=== PATIENT | male | born 1945 | race Caucasian/White ===

== ENCOUNTER 2017-11-07 01:14 | Inpatient (IN) | payer MEDICARE, BC ==
[2017-11-07] MEDS ORDERED: NALOXONE 0.4 MG/ML 1 ML VIAL IV PRN (01:53)
[2017-11-07 01:55] LABS: Basophils % (A) 0 %; Eosinophils # (A) 0.1 k/uL (0-0.7); Eosinophils % (A) 1 %; HCT 45.1 % (39.0-53.0); HGB 13.8 gm/dL (13.0-17.5); Hypochromasia Moderate; Lymphocytes # (A) 1.3 k/uL (1.0-4.8); Lymphocytes % (A) 19 %; MCH 26.2 pg (25.0-35.0); MCHC 30.6 g/dL (31.0-37.0); MCV 85.6 fL (80.0-100.0); Mean Platelet Volume 8.6; Monocytes # (A) 0.3 k/uL (0-1.0); Monocytes % (A) 4 %; Neutrophils # (A) 4.9 k/uL (1.3-7.7); Neutrophils % (A) 74 %; Platelet Count 223 k/uL (150-450); RBC 5.27 m/uL (4.30-5.90); RDW 14.1 % (11.5-15.5); WBC 6.6 k/uL (3.8-10.6)
[2017-11-07 02:09] LABS: Albumin 3.8 g/dL (3.5-5.0); Calcium 9.7 mg/dL (8.4-10.2); Potassium 3.1 mmol/L (3.5-5.1); Total Bilirubin 1.1 mg/dL (0.2-1.3); Total Protein 7.3 g/dL (6.3-8.2)
--- NOTE | 2017-11-07 02:11 | ED ---
Weakness HPI - General Chief complaint: Recheck/Abnormal Lab/Rx Stated complaint: Altered Mental Status Time Seen by Provider: 11/07/17 01:16 Source: family (), EMS Mode of arrival: EMS Limitations: altered mental status - History of Present Illness Initial comments: This patient is a 72-year-old man arriving here is a transfer from [facility]. History is from the patient's who states that she had taken him there because for the past few days she has been seeming to be declining. Patient has history of closed head injury and his is his primary caregiver. She states that over the past week or so he has had very little in the way of oral intake. She states that when she feeds him he will do things a little and then tends to hold food in his cheek without swallowing. He has also been taking very little in way of liquids. The patient also seems to be getting progressively weaker and seems to be sleeping more. Patient 's states that up until about 8 months ago she was able to get him to go up and down the stairs at their home. He has since that time been ambulating less. He has been doing much much less over about the past 2-3 days MD Complaint: generalized weakness, lack of energy -: days(s) Location: generalized - Related Data Allergies Allergy/AdvReac Type Severity Reaction Status Date / Time No Known Allergies Allergy Verified 11/07/17 01:27 Review of Systems ROS Statement: Those systems with pertinent positive or pertinent negative responses have been documented in the HPI. ROS Other: All systems not noted in ROS Statement are negative. Limitations: ROS unobtainable due to patients medical condition Past Medical History Additional Past Medical History / Comment(s): closed head injury, contracture left wrist hand, History of Any Multi-Drug Resistant Organisms: None Reported Past Surgical History: Appendectomy Additional Past Surgical History / Comment(s): antonio filter Past Psychological History: No Psychological Hx Reported Smoking Status: Never smoker Past Alcohol Use History: None Reported Past Drug Use History: None Reported General Exam Limitations: physical limitation General appearance: alert Eye exam: Present: normal appearance, PERRL. Absent: scleral icterus, conjunctival injection ENT exam: Present: mucous membranes dry Respiratory exam: Present: rhonchi. Absent: respiratory distress, wheezes, rales, stridor, accessory muscle use, decreased breath sounds, prolonged expiratory Cardiovascular Exam: Present: regular rate, normal rhythm, normal heart sounds. Absent: systolic murmur, diastolic murmur, rubs, gallop GI/Abdominal exam: Present: soft. Absent: tenderness, guarding, rebound Extremities exam: Present: normal capillary refill. Absent: tenderness, calf tenderness Neurological exam: Present: alert, other (Patient is alert but not able to cooperate with the neurologic exam. Patient does grasp objects with right hand. But not following commands. Currently nonverbal.) Skin exam: Present: warm, dry, intact, erythema (There is some mild erythema to the left lower extremity, the patient's states is chronic.) Course Vital Signs 11/07/17 11/07/17 11/07/17 01:20 02:26 03:00 Temperature 97.6 F 97.6 F Pulse Rate 81 76 41 L Respiratory 20 20 20 Rate Blood Pressure 101/75 143/65 144/75 O2 Sat by Pulse 95 98 98 Oximetry Medical Decision Making - Medical Decision Making Patient 72-year-old man brought to [facility] for generalized weakness and mental status changes. They're he is found to have significant dehydration and hypernatremia. Family requested that he be admitted here so he is transferred here. Patient be admitted for hydration. Discussed CODE STATUS with the patient's who states that he would not want to be resuscitated should the situation come to that. In addition appearanceofpatient' sleftlegwilltreatforsuspectedcellulitis. - Lab Data Result diagrams: 11/07/17 01:31 11/07/17 01:31 Lab Results 11/07/17 11/07/17 11/07/17 Range/Units 01:31 01:31 01:31 WBC 6.6 (3.8-10.6) k/uL RBC 5.27 (4.30-5.90) m/uL Hgb 13.8 (13.0-17.5) gm/dL Hct 45.1 (39.0-53.0) % MCV 85.6 (80.0-100.0) fL MCH 26.2 (25.0-35.0) pg MCHC 30.6 L (31.0-37.0) g/dL RDW 14.1 (11.5-15.5) % Plt Count 223 (150-450) k/uL Neutrophils % 74 % Lymphocytes % 19 % Monocytes % 4 % Eosinophils % 1 % Basophils % 0 % Neutrophils # 4.9 (1.3-7.7) k/uL Lymphocytes # 1.3 (1.0-4.8) k/uL Monocytes # 0.3 (0-1.0) k/uL Eosinophils # 0.1 (0-0.7) k/uL Basophils # 0.0 (0-0.2) k/uL Hypochromasia Moderate Sodium 177 H* (137-145) mmol/L Potassium 3.1 L (3.5-5.1) mmol/L Chloride 131 H* (98-107) mmol/L Carbon Dioxide 27 (22-30) mmol/L Anion Gap 19 mmol/L BUN 112 H* (9-20) mg/dL Creatinine 2.40 H (0.66-1.25) mg/dL Est GFR (CKD-EPI)AfAm 30 (>60 ml/min/1.73 sqM) Est GFR (CKD-EPI)NonAf 26 (>60 ml/min/1.73 sqM) Glucose 178 H (74-99) mg/dL Calcium 9.7 (8.4-10.2) mg/dL Total Bilirubin 1.1 (0.2-1.3) mg/dL AST 47 (17-59) U/L ALT 79 H (21-72) U/L Alkaline Phosphatase 253 H (38-126) U/L Troponin I <0.012 (0.000-0.034) ng/mL Total Protein 7.3 (6.3-8.2) g/dL Albumin 3.8 (3.5-5.0) g/dL Disposition Clinical Impression: Acute renal failure, Hypernatremia, Hypokalemia, Cellulitis Disposition: ADMITTED IP TO THIS HOSP Condition: Poor
[2017-11-07] MEDS ORDERED: DEXTROSE 5%-0.45% NACL 1,000 ML IV ONE (02:23)
[2017-11-07] MEDS: SODIUM CHLORIDE 0.9% 1,000 ML IV SCH ×3 (02:31→16:30)
--- NOTE | 2017-11-07 02:34 | XR ---
EXAMINATION TYPE: XR chest 1V portable DATE OF EXAM: 11/07/2017 COMPARISON: NONE HISTORY: Altered mental status TECHNIQUE: Single frontal view of the chest is obtained. FINDINGS: There is probably some infiltrate in the medial right lower lobe. There is no heart failur e. There are old left-sided rib fractures. Thoracic aorta is atheromatous. There are chest leads. IMPRESSION: There is probably right lower lobe pneumonia. Limited exam. No heart failure.
[2017-11-07] MEDS: POTASSIUM CHLORIDE 10 MEQ in WATER FOR INJECTION 1 100ML.BAG IVPB SCH ×2 (02:39→17:39)
[2017-11-07] MEDS: NAFCILLIN 2 GM in DEXTROSE 5% IN WATER 50 ML IVPB SCH ×6 (06:28→18:08)
[2017-11-07 11:16] LABS: Albumin 3.3 g/dL (3.5-5.0); Calcium 9.3 mg/dL (8.4-10.2); Total Bilirubin 1.1 mg/dL (0.2-1.3); Total Protein 6.8 g/dL (6.3-8.2)
[2017-11-07 11:27] LABS: Potassium 2.9 mmol/L (3.5-5.1)
[2017-11-07 11:40] LABS: HCT 41.7 % (39.0-53.0); HGB 12.7 gm/dL (13.0-17.5); Hypochromasia Marked; MCH 26.9 pg (25.0-35.0); MCHC 30.5 g/dL (31.0-37.0); MCV 88.1 fL (80.0-100.0); Mean Platelet Volume 8.8; Platelet Count 191 k/uL (150-450); RBC 4.74 m/uL (4.30-5.90); RDW 13.9 % (11.5-15.5); WBC 6.3 k/uL (3.8-10.6)
[2017-11-07] MEDS ORDERED: DEXTROSE 5% IN WATER 1,000 ML IV SCH (11:45)
[2017-11-07] MEDS: HEPARIN SODIUM,PORCINE 5,000 UNIT/ML 1 ML VIAL SQ SCH ×2 (13:34→18:08)
--- NOTE | 2017-11-07 14:02 | XR ---
EXAMINATION TYPE: XR Hip Complete RT DATE OF EXAM: 11/07/2017 CLINICAL HISTORY: Right hip pain and bruising TECHNIQUE: AP and frogleg views of the right hip are obtained. COMPARISON: None. FINDINGS: There is no acute fracture/dislocation evident in the right hip. There is mild femoral millicent tabular arthropathy with cephalad joint space narrowing and small marginal osteophytes. No suspicious osseous lesion. The overlying soft tissue appears unremarkable. IMPRESSION: There is no acute fracture or dislocation in the right hip. Mild right femoral acetabula r arthropathy.
--- NOTE | 2017-11-07 14:03 | XR ---
EXAMINATION TYPE: XR humerus RT DATE OF EXAM: 11/07/2017 CLINICAL HISTORY: Right humeral pain TECHNIQUE: Two views of the right humerus are obtained. COMPARISON: None. FINDINGS: There is no acute fracture or dislocation seen in the right humerus. The right shoulder a nd elbow joints demonstrate joint space narrowing and marginal osteophytes indicative of mild arthrop athy. The overlying soft tissue appears within normal limits. IMPRESSION: No acute fracture or dislocation is evident in the right humerus.
[2017-11-07] MEDS: DEXTROSE 5% IN WATER 1,000 ML with POTASSIUM CHLORIDE 40 MEQ IV SCH ×2 (15:00→20:10)
--- NOTE | 2017-11-07 15:50 | P.NPCON ---
History of Present Illness - Reason for Consult Consult date: 11/07/17 hypernatremia - Chief Complaint Altered mental status - History of Present Illness 72-year-old gentleman brought in as a transfer from [facility]. He was brought into the hospital with the decline in function. He had closed and injury and he stopped eating and drinking at home. He just holds food in his mouth and also was drinking very little. When he was brought to the hospital serum sodium was 178. He also had acute kidney injury as well. Of the history is obtained from the chart patient cannot give any history. He also takes diuretics at home. Review of Systems Unable to obtain at this time Past Medical History Past Medical History: Deep Vein Thrombosis (DVT) Additional Past Medical History / Comment(s): closed head injury, contracture left wrist hand, and Left leg, edema lower legs History of Any Multi-Drug Resistant Organisms: None Reported Past Surgical History: Appendectomy Additional Past Surgical History / Comment(s): antonio filter, left leg tendon surgery Past Anesthesia/Blood Transfusion Reactions: No Reported Reaction Past Psychological History: Depression Smoking Status: Never smoker Past Alcohol Use History: None Reported Past Drug Use History: None Reported - Past Family History Father History Unknown: Yes Additional Family Medical History / Comment(s): adopted only child no history available Medications and Allergies Home Medications Medication Instructions Recorded Confirmed Type Multivitamins, Thera [Multivitamin 1 tab PO DAILY 11/07/17 11/07/17 History (formulary)] Triamterene/Hydrochlorothiazid 1 tab PO DAILY 11/07/17 11/07/17 History [Triamterene-Hctz 37.5-25 mg Tb] Allergies Allergy/AdvReac Type Severity Reaction Status Date / Time No Known Allergies Allergy Verified 11/07/17 12:33 Physical Exam Vitals: Vital Signs Temp Pulse Pulse Resp BP BP Pulse Ox 11/07/17 06:05 96.5 F L 80 18 133/64 94 L 11/07/17 03:00 97.6 F 41 L 20 144/75 98 11/07/17 02:26 76 20 143/65 98 11/07/17 01:20 97.6 F 81 20 101/75 95 Intake and Output 11/07/17 11/07/17 11/07/17 06:59 14:59 22:59 Intake Total 800 Balance 800 Intake: Intake, IV Titration 800 Amount Dextrose 5%-0.45% NaCl 1, 800 000 ml @ 200 mls/hr IV . Q5H ONE Rx#:[id number] Other: # Voids 1 1 Weight 80 kg Lying in bed no acute distress S1-S2 heard Trace edema Results - Lab Results Most recent lab results Calcium 9.3 mg/dL (8.4-10.2) 11/07/17 07:25 11/07/17 07:25 11/07/17 07:25 Assessment and Plan Assessment: Impression: #1 hypERnatremia secondary to poor oral intake. #2 acute kidney injury secondary to prerenal process. #3 closed head injury #4 hypertension #5 hypokalemia Recommendations: #1 continue with D5 water increase the rate to 150 ML's an hour #2 the potassium replacements #3 urine osmolality to rule out underlying diabetes insipidus Thank you very much for this consultation we'll follow along while he is in the hospital.
[2017-11-07] MEDS: PIPERACILLIN-TAZOBACTAM 3.375 GM in DEXTROSE/WATER 1 50ML.BAG IVPB SCH (20:10)
--- NOTE | 2017-11-07 22:10 | HP ---
HISTORY AND PHYSICAL DATE OF SERVICE: 11/07/2017 CHIEF COMPLAINTS: Change in mental status. HISTORY OF PRESENT ILLNESS: This 72-year-old gentleman with a past medical history of multiple medical problems, history of DVT, history of closed head injury with contracture of the left wrist and with minimal mobility, was noted to have a change in mental status. The patient apparently had multiple bruises on the body including the both lower legs and the right hip. The patient apparently had the is a primary caregiver and according to the the p.o. intake was extremely poor last week and the patient taken to [facility] and subsequently transferred to [facility] and admitted for further evaluation and treatment. The patient is confused and delirious and severely dehydrated. The sodium is found to be 177 yesterday and creatinine is 2.4. The patient admitted for further evaluation and treatment. Most of the history taken from my discussion with staff and as well as review of chart at this time. The patient is followed by Dr. Louise in the outpatient setting. PAST MEDICAL HISTORY: History of DVT, history of closed head injury, contractures, depression. MEDICATIONS: Prior to admission include home medications are: 1. Multivitamins 1 p.o. daily. 2. Triamterene hydrochlorothiazide 37/25 daily. ALLERGIES: None. Family history, social history and review of systems could not be taken because the patient's change in mental status. The patient is adopted apparently. PHYSICAL EXAM: VITAL SIGNS: The pulse is 80, blood pressure is 130/62, respiration 18, temperature 97.5, pulse ox 94% on room air. GENERAL: Patient is stuporous and disoriented, confused. HEENT: Oral mucosa is dry. NECK: Is no jugular venous distention. No carotid bruit. No lymph node enlargement. CARDIOVASCULAR: S1, S2 muffled. No S3, no S4. RESPIRATORY: Breath sounds diminished in the bases. A few scattered rhonchi. No crackles. ABDOMEN: Soft, nontender. No mass palpable. LEGS: Contractures and significant erythema and cellulitis and excoriation present in the right thigh and also bilateral lower legs also. NERVOUS SYSTEM: Higher functions as mentioned earlier. Otherwise contractures. Unable to cooperate with full exam. SKIN as mentioned. LYMPHATICS: No lymph nodes palpable in the neck, axillae or groin. JOINT: Contractures.ln: Lymphadenopathy. LAB STUDIES: WBC 6.2, hemoglobin 12.7, sodium 178, potassium 2.9, chloride is 131, creatinine is 2.2, glucose 185, alkaline phosphatase is 219. ASSESSMENT: 1. Severe dehydration with hypernatremia secondary to diminished p.o. intake. 2. Change in mental status acute metabolic encephalopathy secondary to dehydration, hypernatremia. 3. Acute renal failure possible prerenal renal failure with acute tubular necrosis. 4. Hyperchloremia. 5. Closed head injury with contractures. 6. Bilateral leg cellulitis and right thigh cellulitis with possible sepsis. 7. History of deep vein thrombosis. 8. History of appendectomy. 9. History of [place] filter placement. 10.History of depression. RECOMMENDATIONS AND DISCUSSION: In this 72-year-old gentleman who presented with multiple complex medical issues , we will monitor the patient closely. Continue the current medications, management and symptomatic treatment. Otherwise we will initiate broad-spectrum IV antibiotics and DVT prophylaxis. IV fluids. D5 water with potassium at 150 mL/hour. Potassium replacement protocol. Repeat labs. Infectious disease evaluation. The prognosis extremely guarded because of the multiple complex medical issues. I would also recommend cultures also. Home medication reconciliation was also done, but however, I would recommend to hold the diuretics at this time and continue to monitor. The liver functions appear to be normal. Alkaline phosphatase is elevated. See orders for further details. Further recommendations to follow. MMODL / IJN: [id number] / MTDD
[2017-11-08] MEDS: PIPERACILLIN-TAZOBACTAM 3.375 GM in DEXTROSE/WATER 1 50ML.BAG IVPB SCH ×3 (00:51→16:08)
[2017-11-08] MEDS: HEPARIN SODIUM,PORCINE 5,000 UNIT/ML 1 ML VIAL SQ SCH ×3 (00:53→16:08)
[2017-11-08] MEDS: POTASSIUM CHLORIDE 10 MEQ in WATER FOR INJECTION 1 100ML.BAG IVPB SCH ×2 (03:23→14:11)
[2017-11-08 04:20] LABS: Amorphous Sediment,Urine Rare /hpf; Appearance,Urine Turbid (Clear); Bilirubin,Urine Negative (Negative); Blood,Urine Large (Negative); Color,Urine Light Red; Glucose,Urine (UA) Negative (Negative); Ketones,Urine Negative (Negative); Leukocyte Esterase,Urine Moderate (Negative); Mucus,Urine Few /hpf; Nitrite,Urine Negative (Negative); PH, Urine 5.5 (5.0-8.0); Protein,Urine 2+ (Negative); RBC,Urine >182 /hpf (0-5); Specific Gravity,Urine 1.018 (1.001-1.035); Urobilinogen,Urine <2.0 mg/dL (<2.0); WBC,Urine 46 /hpf (0-5)
[2017-11-08] MEDS: DEXTROSE 5% IN WATER 1,000 ML with POTASSIUM CHLORIDE 40 MEQ IV SCH ×3 (05:39→16:09)
[2017-11-08 08:12] LABS: Basophils % (A) 0 %; Eosinophils # (A) 0.2 k/uL (0-0.7); Eosinophils % (A) 2 %; HCT 42.3 % (39.0-53.0); Hypochromasia Marked; Lymphocytes # (A) 1.6 k/uL (1.0-4.8); Lymphocytes % (A) 18 %; MCH 27.3 pg (25.0-35.0); MCHC 30.8 g/dL (31.0-37.0); MCV 88.8 fL (80.0-100.0); Mean Platelet Volume 8.3; Monocytes # (A) 0.3 k/uL (0-1.0); Monocytes % (A) 4 %; Neutrophils # (A) 6.5 k/uL (1.3-7.7); Neutrophils % (A) 74 %; Platelet Count 184 k/uL (150-450); RBC 4.76 m/uL (4.30-5.90); RDW 14.5 % (11.5-15.5); WBC 8.7 k/uL (3.8-10.6)
[2017-11-08 08:29] LABS: Magnesium 3.2 mg/dL (1.6-2.3); Potassium 3.1 mmol/L (3.5-5.1)
[2017-11-08] MEDS: MULTIVITAMINS, THERA 1 EACH TAB PO SCH (11:23)
--- NOTE | 2017-11-08 13:46 | P.PN ---
Subjective Progress Note Date: 11/08/17 Seen and examined for the follow-up of hypernatremia and acute kidney injury. Still confused. Objective - Vital Signs Vital signs: Vital Signs Temp 97.1 F L 11/08/17 06:09 Pulse 62 11/08/17 06:09 Resp 16 11/08/17 06:09 BP 97/43 11/08/17 06:09 Pulse Ox 93 L 11/08/17 06:09 Intake & Output 11/07/17 11/08/17 11/08/17 18:59 06:59 18:59 Intake Total 800 Output Total 1000 Balance 800 -1000 Intake: Intake, IV Titration 800 Amount Dextrose 5%-0.45% NaCl 1, 800 000 ml @ 200 mls/hr IV . Q5H ONE Rx#:[id number] Output: Urine 1000 Other: Voiding Method Indwelling Catheter # Voids 1 - Exam Lying in bed no acute distress S1-S2 heard Edema - Labs CBC & Chem 7: 11/08/17 07:36 11/08/17 07:36 Labs: Abnormal Lab Results - Last 24 Hours (Table) 11/08/17 11/08/17 11/08/17 Range/Units 03:55 07:36 07:36 MCHC 30.8 L (31.0-37.0) g/dL Sodium 178 H* (137-145) mmol/L Potassium 3.1 L (3.5-5.1) mmol/L Chloride 131 H* (98-107) mmol/L BUN 91 H* (9-20) mg/dL Creatinine 2.17 H (0.66-1.25) mg/dL Glucose 158 H (74-99) mg/dL Magnesium 3.2 H (1.6-2.3) mg/dL Urine Protein 2+ H (Negative) Urine Blood Large H (Negative) Ur Leukocyte Esterase Moderate H (Negative) Urine RBC >182 H (0-5) /hpf Urine WBC 46 H (0-5) /hpf Amorphous Sediment Rare H (None) /hpf Urine Mucus Few H (None) /hpf Microbiology - Last 24 Hours (Table) 11/08/17 03:55 Urine Culture - Preliminary Urine,Catheterized Assessment and Plan Assessment: Impression: #1 hypERnatremia secondary to poor oral intake. #2 acute kidney injury secondary to prerenal process. Unknown baseline creatinine #3 closed head injury #4 hypertension #5 hypokalemia Recommendations: #1 continue with D5 water @ 150 ML's an hour. Discussed with the nursing staff regarding NG tube but she was pretty sure that he will pull it out. #2 continue with fluids at current rate. Anticipate to start improving by tomorrow. #3 urine osmolality not consistent with diabetes insipidus #4 continue with potassium replacements
--- NOTE | 2017-11-08 19:41 | PN ---
PROGRESS NOTE DATE OF SERVICE: 11/08/2017 This 72-year-old gentleman who was admitted with change in mental status and significant dehydration. Patient had significant hypernatremia. Despite giving D5 water the sodium is not improving. The patient also had change in mental status. Patient also had multiple skin lesions and possible sepsis also. The patient has been closely monitored. The patient is stuporous, unable to give any history at this time. Nephrology following the patient closely. The p.o. intake is nil currently. PAST MEDICAL HISTORY: Reviewed. REVIEW OF SYSTEMS: Could not be taken. CURRENT MEDICATIONS ARE: Reviewed and include: 1. Dextrose water. 2. Heparin. 3. Narcan. 4. Zosyn 3.5 IV q.8h. PHYSICAL EXAM: Patient is stuporous. Pulse is 62, blood pressure 97/42, respirations 16, temperature 97.1, pulse ox 93% on room air. HEENT: Conjunctivae normal. Oral mucosa dry. NECK: No jugular venous distention. No lymph node enlargement. CARDIOVASCULAR: S1, S2. RESPIRATORY: Diminished breath sounds at the bases. A few scattered rhonchi and crackles. ABDOMEN: Soft, nontender. LEGS: Contractures. SKIN: Erythema as well as infection present. NERVOUS SYSTEM: Unchanged. LAB: CBC within normal. Sodium 178, potassium 3.1, chloride is 131, creatinine is 2.17. UA noted, hematuria. Urine osmolality 684 and specific gravity is 1018. ASSESSMENT: 1. Severe dehydration with hyponatremia, possibly secondary to diminished p.o. intake. 2. Change in mental status, acute metabolic encephalopathy secondary dehydration. 3. Acute hypernatremia. 4. Acute renal failure, possibly prerenal acute renal failure with acute tubular necrosis. 5. Hyperchloremia. 6. Possible sepsis with cellulitis. 7. Closed-head injury with contractures. 8. History of deep vein thrombosis. 9. History of appendectomy. 10.History of [place] filter placement. 11.History of depression. 12.Possible sepsis with bilateral leg cellulitis and right thigh cellulitis. 13.No code, no CPR, no vent. RECOMMENDATIONS: Recommend to continue current management, continue symptomatic treatment, continue IV fluids, monitor glucose closely. Continue the empiric antibiotics. NG tube was considered by Nephrology, but because of lack of compliance, we will continue to monitor. I will get infectious disease evaluation as well. Prognosis guarded. Discussed with Nephrology. Further recommendations to follow. MMODL / IJN: [id number] /
[2017-11-09] MEDS: HEPARIN SODIUM,PORCINE 5,000 UNIT/ML 1 ML VIAL SQ SCH ×4 (00:17→23:23)
[2017-11-09] MEDS: PIPERACILLIN-TAZOBACTAM 3.375 GM in DEXTROSE/WATER 1 50ML.BAG IVPB SCH ×3 (00:17→16:01)
[2017-11-09] MEDS: DEXTROSE 5% IN WATER 1,000 ML with POTASSIUM CHLORIDE 40 MEQ IV SCH ×4 (00:18→22:47)
[2017-11-09] MEDS: POTASSIUM CHLORIDE 10 MEQ in WATER FOR INJECTION 1 100ML.BAG IVPB SCH ×2 (03:26→16:00)
[2017-11-09 08:09] LABS: Basophils % (A) 0 %; Eosinophils # (A) 0.3 k/uL (0-0.7); Eosinophils % (A) 3 %; HCT 43.3 % (39.0-53.0); Hypochromasia Marked; Lymphocytes # (A) 1.6 k/uL (1.0-4.8); Lymphocytes % (A) 20 %; MCH 26.3 pg (25.0-35.0); MCHC 30.1 g/dL (31.0-37.0); MCV 87.5 fL (80.0-100.0); Mean Platelet Volume 8.4; Monocytes # (A) 0.3 k/uL (0-1.0); Monocytes % (A) 4 %; Neutrophils # (A) 5.7 k/uL (1.3-7.7); Neutrophils % (A) 72 %; Platelet Count 199 k/uL (150-450); RBC 4.95 m/uL (4.30-5.90); RDW 14.2 % (11.5-15.5)
[2017-11-09 08:25] LABS: Calcium 8.9 mg/dL (8.4-10.2); Potassium 3.4 mmol/L (3.5-5.1)
[2017-11-09] MEDS: MULTIVITAMINS, THERA 1 EACH TAB PO SCH (12:36)
--- NOTE | 2017-11-09 13:31 | P.PN ---
Subjective Progress Note Date: 11/09/17 Seen and examined for the follow-up of hypernatremia and acute kidney injury. Still confused. As per the nursing nursing staff obeying commands Objective - Vital Signs Vital signs: Vital Signs Temp 97.6 F 11/09/17 06:46 Pulse 76 11/09/17 06:46 Resp 14 11/09/17 06:46 BP 136/77 11/09/17 06:46 Pulse Ox 94 L 11/09/17 06:46 Intake & Output 11/08/17 11/09/17 11/09/17 18:59 06:59 18:59 Output Total 525 800 350 Balance -525 -800 -350 Output: Urine 525 800 350 Other: Voiding Method Indwelling Catheter Indwelling Catheter Indwelling Catheter # Bowel Movements 0 - Exam Lying in bed no acute distress S1-S2 heard Edema - Labs CBC & Chem 7: 11/09/17 07:15 11/09/17 07:15 Labs: Abnormal Lab Results - Last 24 Hours (Table) 11/09/17 11/09/17 Range/Units 07:15 07:15 MCHC 30.1 L (31.0-37.0) g/dL Sodium 175 H* (137-145) mmol/L Potassium 3.4 L (3.5-5.1) mmol/L Chloride 132 H* (98-107) mmol/L BUN 69 H (9-20) mg/dL Creatinine 2.12 H (0.66-1.25) mg/dL Glucose 141 H (74-99) mg/dL Microbiology - Last 24 Hours (Table) 11/08/17 03:55 Urine Culture - Final Urine,Catheterized 11/07/17 19:00 Blood Culture - Preliminary Blood No Growth after 24 hours Assessment and Plan Assessment: Impression: #1 hypERnatremia secondary to poor oral intake. #2 acute kidney injury secondary to prerenal process. Unknown baseline creatinine #3 closed head injury #4 hypertension #5 hypokalemia Recommendations: #1 continue with D5 water @ 150 ML's an hour. Discussed with the nursing staff regarding NG tube but she was pretty sure that he will pull it out. #2 continue with fluids at current rate. #3 urine osmolality not consistent with diabetes insipidus #4 continue with potassium replacements
--- NOTE | 2017-11-09 18:00 | PN ---
PROGRESS NOTE DATE OF SERVICE: 11/09/2017 REASON FOR FOLLOWUP: 1. Possible UTI. 2. Right forearm and hip wound. INTERVAL HISTORY: The patient is afebrile. The patient remains to be nonverbal. Does open eyes to the name but will not provide any history. No other events reported by the nursing staff. EXAMINATION: Blood pressure 136/80 with a pulse of 56, temperature 97.9, he is 94% on room air. GENERAL DESCRIPTION: A middle-aged male lying in bed in no distress. RESPIRATORY SYSTEM: Unlabored breathing. Clear to auscultation anteriorly. HEART: S1, S2. Regular rate. ABDOMEN: No tenderness. The patient does have superficial ulceration to the right upper arm and to the hip area but no cellulitis. Left leg is slightly swollen and red. As already mentioned, the cellulitis looks better than he has before. LABS: Hemoglobin is 13.2, white count 8.0, BUN of 69, creatinine 2.12. DIAGNOSTIC IMPRESSION AND PLAN: 1. Patient admitted to the hospital with mental status changes, more likely metabolic. The patient for infectious etiology with positive UA currently covered with Rocephin left leg. 2. Right forearm and the right hip wound. Local wound care with Aquacel Silver dressing to be changed q.48 hours. MMODL / IJN: [id number] /
--- NOTE | 2017-11-09 22:45 | PN ---
PROGRESS NOTE DATE OF SERVICE: 11/09/2017 This 72-year-old gentleman who was admitted with severe dehydration and hypernatremia is being closely monitored. The patient is on D5 water at this time. NG tube could not be inserted because of the patient's mental status changes. The patient is also on broad-spectrum IV antibiotics. Nephrology is following the patient closely. Sodium is 175 today. Creatinine is 2.12. EXAM: The patient is stuporous. Pulse 56, blood pressure 130/80, respiration 14, temperature 97.2, pulse ox 94% room air. HEENT: Conjunctivae normal. Oral mucosa dry. NECK: No jugular venous distention. No carotid bruit. No lymph node enlargement. CARDIOVASCULAR: S1, S2. RESPIRATORY: Diminished breath sounds at the bases. A few scattered rhonchi and crackles. ABDOMEN: Soft. NERVOUS SYSTEM: Unchanged. LAB DATA: CBC within normal. Sodium 175. UA noted. The cultures are negative so far. ASSESSMENT: 1. Severe dehydration and hypernatremia, possibly secondary to diminished p.o. intake. 2. Change in mental status, acute metabolic encephalopathy secondary to dehydration. 3. Acute hypernatremia. 4. Acute renal failure, possibly prerenal acute renal failure with acute tubular necrosis. 5. Hypochloremia. 6. Possible sepsis with cellulitis. 7. Closed head injury with contractures history. 8. History of deep vein thrombosis. 9. History of appendectomy. 10.History of [place] filter placement. 11.History of depression. 12.Possible sepsis with bilateral leg cellulitis and right thigh cellulitis. 13.No code, no CPR, no VENT. RECOMMENDATIONS AND DISCUSSION: I recommend to continue current management, continue symptomatic treatment. Continue with IV fluids. Monitor sodium closely. Closely follow with Nephrology, Infectious Disease and otherwise DVT prophylaxis. Broad-spectrum IV antibiotics. Follow the cultures. Further recommendations to follow. MMODL / IJN: [id number] /
[2017-11-10] MEDS: POTASSIUM CHLORIDE 10 MEQ in WATER FOR INJECTION 1 100ML.BAG IVPB SCH (04:19)
[2017-11-10] MEDS: DEXTROSE 5% IN WATER 1,000 ML with POTASSIUM CHLORIDE 40 MEQ IV SCH ×4 (05:58→22:32)
[2017-11-10 08:31] LABS: Basophils % (A) 0 %; Eosinophils # (A) 0.3 k/uL (0-0.7); Eosinophils % (A) 4 %; HCT 41.7 % (39.0-53.0); HGB 12.6 gm/dL (13.0-17.5); Hypochromasia Marked; Lymphocytes # (A) 2.5 k/uL (1.0-4.8); Lymphocytes % (A) 30 %; MCH 26.6 pg (25.0-35.0); MCHC 30.2 g/dL (31.0-37.0); MCV 87.9 fL (80.0-100.0); Monocytes # (A) 0.3 k/uL (0-1.0); Monocytes % (A) 3 %; Neutrophils # (A) 5.1 k/uL (1.3-7.7); Neutrophils % (A) 61 %; Platelet Count 193 k/uL (150-450); RBC 4.75 m/uL (4.30-5.90); RDW 14.2 % (11.5-15.5); WBC 8.4 k/uL (3.8-10.6)
[2017-11-10 08:45] LABS: Calcium 8.6 mg/dL (8.4-10.2); Potassium 4.1 mmol/L (3.5-5.1)
[2017-11-10] MEDS: cefTRIAXone IN SWFI 2,000 MG/20 ML SYRINGE IVP SCH (08:52)
[2017-11-10] MEDS: HEPARIN SODIUM,PORCINE 5,000 UNIT/ML 1 ML VIAL SQ SCH ×2 (08:53→15:28)
[2017-11-10 10:24] VITALS: BMI 26.0
--- NOTE | 2017-11-10 10:29 | P.PN ---
Subjective Patient is seen in follow-up for electrolyte imbalance. Sodium level is down to 166 and creatinine is down to 1.68 today. Patient is not a very reliable historian. Oral intake remains poor. He is currently maintained on D5W at 150 mL an hour along with potassium replacement. Vital signs are stable. General: Currently sleeping. HEENT: Head exam is unremarkable. Neck is without jugular venous distension. LUNGS: Breath sounds decreased. HEART: Rate and Rhythm are regular. First and second heart sounds normal. No murmurs, rubs or gallops. ABDOMEN: Abdominal exam reveals normal bowel sounds. Non-tender and non- distended. No evidence of peritonitis. EXTREMITITES: No edema. Objective - Vital Signs Vital signs: Vital Signs Temp 97.0 F L 11/10/17 05:45 Pulse 70 11/10/17 05:45 Resp 17 11/10/17 05:45 BP 135/70 11/10/17 05:45 Pulse Ox 97 11/10/17 05:45 Intake & Output 11/09/17 11/10/17 11/10/17 18:59 06:59 18:59 Output Total 350 450 Balance -350 -450 Weight 80 kg Output: Urine 350 450 Other: Voiding Method Indwelling Catheter Indwelling Catheter # Bowel Movements 1 - Labs CBC & Chem 7: 11/10/17 07:56 11/10/17 07:56 Labs: Abnormal Lab Results - Last 24 Hours (Table) 11/10/17 11/10/17 Range/Units 07:56 07:56 Hgb 12.6 L (13.0-17.5) gm/dL MCHC 30.2 L (31.0-37.0) g/dL Sodium 166 H* (137-145) mmol/L Chloride 127 H* (98-107) mmol/L BUN 48 H (9-20) mg/dL Creatinine 1.68 H (0.66-1.25) mg/dL Glucose 132 H (74-99) mg/dL Microbiology - Last 24 Hours (Table) 11/07/17 19:00 Blood Culture - Preliminary Blood No Growth after 48 hours 11/08/17 03:55 Urine Culture - Final Urine,Catheterized Assessment and Plan Plan: Assessment: 1. Hypovolemic hypernatremia secondary to lack of oral water intake. Sodium level down to 166 today. 2. Nonoliguric acute kidney injury most to prerenal improving with IV hydration. Creatinine around 1.68 today. Unknown baseline creatinine. 3. Hypokalemia from diuretics and poor oral intake. Improved post replacement. Magnesium replete. 4. Benign hypertension. Controlled. 5. Closed head injury. Plan: Continue D5W at 150 mL an hour with 40 mEq of potassium per back. Repeat sodium and potassium level this evening. Encourage oral intake. Avoid nephrotoxins.
[2017-11-10] MEDS: MULTIVITAMINS, THERA 1 EACH TAB PO SCH (12:48)
--- NOTE | 2017-11-10 14:34 | PN ---
PROGRESS NOTE DATE OF SERVICE: 11/10/2017. INTERVAL HISTORY: This 72-year-old gentleman who was admitted with severe dehydration and hyponatremia is being closely monitored. Patient continues to be confused. Patient on D5 water. EXAM: The patient is confused. Patient is stuporous. Pulse 70, blood pressure 130/70, respiration 17, temperature 97 degrees, pulse ox 97% on room air. HEENT: Conjunctivae normal. Oral mucosa dry. NECK is no jugular venous distention, no carotid bruit. CARDIOVASCULAR: S1, S2 muffled. RESPIRATORY: Breath sounds diminished in the bases. No rhonchi. No crackles. ABDOMEN: Soft. NERVOUS SYSTEM: Contractures present. SKIN: Erythema also present both to legs and right thigh also. LABS: WBC is 8.2, hemoglobin 12.6, sodium 166 and creatinine is 1.68. UA noted. Cultures are negative so far. ASSESSMENT: 1. Severe dehydration and hypernatremia, possibly secondary to diminished p.o. intake, present on admission. 2. Change in mental status acute metabolic encephalopathy secondary to dehydration. 3. Acute hypernatremia. 4. Acute renal failure possibly prerenal acute renal failure with acute tubular necrosis. 5. Hyperchloremia. 6. Possible sepsis cellulitis. 7. Closed-head injury with contractures history. 8. History of deep vein thrombosis. 9. History of appendectomy. 10.History of [place] filter placement. 11.History of depression. 12.NO CODE, NO CPR, NO VENT. RECOMMENDATIONS AND DISCUSSION: In this 72-year-old gentleman who presented with multiple complex medical issues. We will monitor the patient closely. Continue the current medications, management and symptomatic treatment. Otherwise, at this time, I recommend continue with IV fluids. Monitor lytes closely. The sodium seems to be improving slightly and the NG tube is not a practical option because of the restlessness of the patient and continue to monitor. Guarded prognosis. Further recommendations to follow. MMODL / IJN: [id number] /
[2017-11-10 18:44] LABS: Potassium 4.3 mmol/L (3.5-5.1)
--- NOTE | 2017-11-10 19:28 | PN ---
PROGRESS NOTE DATE OF SERVICE: 11/10/2017. REASON FOR FOLLOWUP: Possible UTI and left leg cellulitis. INTERVAL HISTORY: The patient is currently afebrile. His seemed to be more awake and alert today and answered some simple questions by replying with an answer, did not seem to be distressed. Remains to be normal and no changes or concerns noted by the nursing staff. EXAMINATION: Blood pressure 108/56, pulse of 74 temperature 97.4. He is 95% on room air. General description is an elderly male lying in bed in no distress. Respiratory system: Unlabored breathing. Clear to auscultation anteriorly. HEART: S1, S2. Regular rate and rhythm. Abdomen soft. No tenderness. LABS: Hemoglobin 12.2, white count 8.4 with a BUN of 48, creatinine 1.68. DIAGNOSTIC IMPRESSION AND PLAN: Patient with mental status changes disease, more likely metabolic. Clinically less likely infectious etiology. Currently on broad spectrum plan to finish a course on discharge. Continue supportive care. MMODL / IJN: [id number] /
[2017-11-11] MEDS: DEXTROSE 5% IN WATER 1,000 ML with POTASSIUM CHLORIDE 40 MEQ IV SCH ×11 (00:25→21:35)
[2017-11-11] MEDS: HEPARIN SODIUM,PORCINE 5,000 UNIT/ML 1 ML VIAL SQ SCH ×4 (00:28→23:54)
[2017-11-11] MEDS: cefTRIAXone IN SWFI 2,000 MG/20 ML SYRINGE IVP SCH (08:10)
[2017-11-11 09:43] LABS: Basophils % (A) 1 %; Eosinophils # (A) 0.2 k/uL (0-0.7); Eosinophils % (A) 4 %; HGB 12.4 gm/dL (13.0-17.5); Hypochromasia Marked; Lymphocytes # (A) 2.4 k/uL (1.0-4.8); Lymphocytes % (A) 37 %; MCH 26.8 pg (25.0-35.0); MCHC 30.3 g/dL (31.0-37.0); MCV 88.6 fL (80.0-100.0); Mean Platelet Volume 8.4; Monocytes # (A) 0.2 k/uL (0-1.0); Monocytes % (A) 3 %; Neutrophils # (A) 3.4 k/uL (1.3-7.7); Neutrophils % (A) 54 %; Platelet Count 160 k/uL (150-450); RBC 4.63 m/uL (4.30-5.90); RDW 14.2 % (11.5-15.5); WBC 6.4 k/uL (3.8-10.6)
[2017-11-11 09:53] LABS: Calcium 8.3 mg/dL (8.4-10.2); Potassium 4.2 mmol/L (3.5-5.1)
--- NOTE | 2017-11-11 10:26 | P.PN ---
Subjective Patient is seen in follow-up for electrolyte imbalance. Sodium level is down to 160 and creatinine is down to 1.47 today. Patient is not a very reliable historian. Oral intake remains poor. He is currently maintained on D5W at 150 mL an hour along with potassium replacement. Vital signs are stable. General: Currently sleeping. HEENT: Head exam is unremarkable. Neck is without jugular venous distension. LUNGS: Breath sounds decreased. HEART: Rate and Rhythm are regular. First and second heart sounds normal. No murmurs, rubs or gallops. ABDOMEN: Abdominal exam reveals normal bowel sounds. Non-tender and non- distended. No evidence of peritonitis. EXTREMITITES: No edema. Objective - Vital Signs Vital signs: Vital Signs Temp 98.2 F 11/11/17 07:00 Pulse 70 11/11/17 07:00 Resp 17 11/11/17 07:00 BP 114/49 11/11/17 07:00 Pulse Ox 99 11/11/17 07:00 Intake & Output 11/10/17 11/11/17 11/11/17 18:59 06:59 18:59 Intake Total 125 Output Total 350 602 Balance -350 -477 Weight 80 kg Intake: Oral 125 Output: Urine 350 600 Stool 2 Other: Voiding Method Indwelling Catheter Indwelling Catheter Indwelling Catheter # Bowel Movements 1 1 - Labs CBC & Chem 7: 11/11/17 09:08 11/11/17 09:08 Labs: Abnormal Lab Results - Last 24 Hours (Table) 11/10/17 11/11/17 11/11/17 Range/Units 18:07 09:08 09:08 Hgb 12.4 L (13.0-17.5) gm/dL MCHC 30.3 L (31.0-37.0) g/dL Sodium 159 H 160 H* (137-145) mmol/L Chloride 123 H* (98-107) mmol/L BUN 33 H (9-20) mg/dL Creatinine 1.47 H (0.66-1.25) mg/dL Glucose 150 H (74-99) mg/dL Calcium 8.3 L (8.4-10.2) mg/dL Microbiology - Last 24 Hours (Table) 11/07/17 19:00 Blood Culture - Preliminary Blood No Growth after 72 hours Assessment and Plan Plan: Assessment: 1. Hypovolemic hypernatremia secondary to lack of oral water intake. Sodium level down to 160 today. 2. Nonoliguric acute kidney injury most to prerenal improving with IV hydration. Creatinine improved to 1.47 today. Unknown baseline creatinine. 3. Hypokalemia from diuretics and poor oral intake. Improved post replacement. Magnesium replete. 4. Benign hypertension. Controlled. 5. Closed head injury. Plan: Continue D5W at 150 mL an hour with 40 mEq of potassium per 1 L bag. Repeat sodium and potassium level this evening. Encourage oral intake. Avoid nephrotoxins.
--- NOTE | 2017-11-11 12:49 | CDI ---
Last Revision, May 2017 Documentation Clarification Form Date: 11/11/17 From: Mamie Durand RN, CCDS Admit Date: 11/07/2017 1:57:00 AM Patient Name: Jayson Phillips Visit Number: [id number] Discharge Date: ATTENTION: The Clinical Documentation Specialists (CDI) and [facility] Coding Staff appreciate your assistance in clarifying documentation. Please respond to the clarification below the line at the bottom and electronically sign. The CDI & [facility] Coding staff will review the response and follow-up if needed. Please note: Queries are made part of the Legal Health Record. If you have any questions, please contact the author of this message via ITS. Dr. Laura Rosenberg Possible sepsis cellulitis is documented in the H&P and continues in your progress notes. . Patient history/risk factors: Closed head injury with contractures, DVT, Clinical Indicators: Transfer from [facility] with poor oral intake , getting progressively weaker, sleeping more per patient's . Mucous membranes dry, he is not following commands, and was nonverbal. Skin exam: some mild erythema to the left lower extremity, states is chronic. Vital signs on admission: 101/75 81 20 97.6 95 % RA Labs on admission: WBC 6.6, NA+ 177, K+ 3.1, Chloride 131, BUN 112, CR 2.40 UA : Leukocyte Esterase Moderate, ur WBC 46, UR Osmolality 684, Chest x-ray: Probably right lower lobe pneumonia Blood Culture-Preliminary No Growth after 72 hrs, Urine Culture - No growth Sepsis Screening Level 1 infection: Documented infection Level 2 SIRS Criteria: None Treatment: Neurological assessment per protocol Monitor Labs Rocephin IV ID Consults: Patient admitted to the hospital with mental status changes, more likely metabolic. Clinically less likely infectious etiology. Please document confirmation of the diagnosis of Sepsis in your progress notes and/or discharge summary, along with its associated clinical indicators (i.e., signs, symptoms, findings, treatments, monitoring). If this condition was ruled out or documented in error, please indicate in your progress notes and/or discharge summary. - no sepsis MTDD
[2017-11-11] MEDS: MULTIVITAMINS, THERA 1 EACH TAB PO SCH (13:26)
--- NOTE | 2017-11-11 15:25 | PN ---
PROGRESS NOTE DATE OF SERVICE: 11/11/2017. REASON FOR FOLLOWUP: Possible UTI. INTERVAL HISTORY: The patient is afebrile. He is currently sleepy and remains to be lethargic. Per the RN, his oral intake is very poor. No more diarrhea has been reported. No history was obtained from the patient. EXAMINATION: Blood pressure is 114/49 with a pulse of 73, temperature 98.2. He is 99% on room air. GENERAL DESCRIPTION: Is an elderly male lying in bed in no distress. RESPIRATORY SYSTEM: Unlabored breathing. Clear to auscultation anteriorly. HEART: S1, S2. Regular rate and rhythm. ABDOMEN: Soft, no tenderness. LABS: Hemoglobin 12.4, white count 6.4, BUN of 33, creatinine 1.47. Culture came back negative so far. DIAGNOSTIC IMPRESSION AND PLAN: Patient admitted to the hospital with mental status change, more likely metabolic, infection. Did have a positive Urinalysis for which the patient currently on Rocephin that can be discontinued on discharge. Continue supportive care. MMODL / IJN: [id number] /
--- NOTE | 2017-11-11 15:46 | P.PN ---
Subjective Progress Note Date: 11/11/17 Date of service 11/11/2017 Personal being dictated for Dr. Schneider This is a 72-year-old gentleman admitted with severe dehydration and hypernatremia, and multiple other medical issues. Maintained on D5W, sodium worsened today up to 160. Renal function improving. Diet intake remains poor. More alert today ,Answers by giving the "thumbs up", occasionally. Maintained on broad-spectrum antibiotics of Rocephin as per infectious disease. Afebrile, normal WBC. Objective - Vital Signs Vital signs: Vital Signs Temp 98.2 F 11/11/17 07:00 Pulse 70 11/11/17 07:00 Resp 17 11/11/17 07:00 BP 114/49 11/11/17 07:00 Pulse Ox 99 11/11/17 07:00 Intake & Output 11/10/17 11/11/17 11/11/17 18:59 06:59 18:59 Intake Total 125 Output Total 350 602 Balance -350 -477 Weight 80 kg Intake: Oral 125 Output: Urine 350 600 Stool 2 Other: Voiding Method Indwelling Catheter Indwelling Catheter Indwelling Catheter # Bowel Movements 1 1 - Exam PHYSICAL EXAM: VITAL SIGNS: As above GENERAL: Sitting up in bed, no acute distress HEENT: Conjunctivae normal. eyes normal. NECK: No JVD. No thyroid enlargement. No LNs CARDIOVASCULAR: Regular S1-S2, no murmurs rubs or gallops RESPIRATION:Breath sounds diminished in the bases. No rhonchi or crackles. No bronchial breathing. ABDOMEN: Soft, nontender . No guarding. no masses palpable. Bowel sounds heard. LEGS: No edema. no swelling PSYCHIATRY: Alert and oriented -3, mood and affect normal. NERVOUS SYSTEM: Contractures present Skin: no ulcer no rash .erythema bilateral legs, right thigh,small multiple scabs, nondraining on feet . Joints: No active swelling. No inflammation. - Labs CBC & Chem 7: 11/11/17 09:08 11/11/17 09:08 Labs: Abnormal Lab Results - Last 24 Hours (Table) 11/10/17 11/11/17 11/11/17 Range/Units 18:07 09:08 09:08 Hgb 12.4 L (13.0-17.5) gm/dL MCHC 30.3 L (31.0-37.0) g/dL Sodium 159 H 160 H* (137-145) mmol/L Chloride 123 H* (98-107) mmol/L BUN 33 H (9-20) mg/dL Creatinine 1.47 H (0.66-1.25) mg/dL Glucose 150 H (74-99) mg/dL Calcium 8.3 L (8.4-10.2) mg/dL Microbiology - Last 24 Hours (Table) 11/07/17 19:00 Blood Culture - Preliminary Blood No Growth after 72 hours Assessment and Plan Assessment: 1. [ Severe dehydration and acute hypernatremia possibly secondary to diminished oral intake, present on admission]. 2. [ Change in mental status, acute metabolic encephalopathy secondary to dehydration]. 3. [ Acute renal failure, possibly prerenal with acute tubular necrosis 4. [ Hyperchloremia]. 5. [Possible sepsis secondary to cellulitis. 6. [ History of closed head injury with contractures]. 7. [ History of [place] filter placement 8. No code, no CPR, no vent]. Plan: Continue current medication regime ,monitoring and symptomatic treatment. D5W IV fluid rate increased with recheck of electrolytes this afternoon. Strict aspiration precautions, dysphagia diet. Close monitoring of electrolytes with repeat labs ordered for a.m.also. The impression and plan of care has been dictated as directed. : I performed a history and examination of this patient, discussed the same with the dictator. I agree with the dictator's note ,documented as a scribe. Any additional findings or plans will be noted.
[2017-11-12] MEDS: cefTRIAXone IN SWFI 2,000 MG/20 ML SYRINGE IVP SCH (07:39)
[2017-11-12] MEDS: DEXTROSE 5% IN WATER 1,000 ML with POTASSIUM CHLORIDE 40 MEQ IV SCH ×3 (07:39→16:04)
[2017-11-12] MEDS: HEPARIN SODIUM,PORCINE 5,000 UNIT/ML 1 ML VIAL SQ SCH ×2 (07:40→16:05)
[2017-11-12 08:38] LABS: Basophils % (A) 0 %; Eosinophils # (A) 0.3 k/uL (0-0.7); Eosinophils % (A) 4 %; HGB 11.7 gm/dL (13.0-17.5); Hypochromasia Marked; Lymphocytes # (A) 2.1 k/uL (1.0-4.8); Lymphocytes % (A) 34 %; MCH 26.9 pg (25.0-35.0); MCHC 30.7 g/dL (31.0-37.0); MCV 87.6 fL (80.0-100.0); Mean Platelet Volume 7.9; Monocytes # (A) 0.3 k/uL (0-1.0); Monocytes % (A) 4 %; Neutrophils # (A) 3.5 k/uL (1.3-7.7); Neutrophils % (A) 56 %; Platelet Count 154 k/uL (150-450); RBC 4.34 m/uL (4.30-5.90); RDW 14.5 % (11.5-15.5); WBC 6.3 k/uL (3.8-10.6)
[2017-11-12 08:55] LABS: Potassium 4.3 mmol/L (3.5-5.1)
--- NOTE | 2017-11-12 10:16 | P.PN ---
Subjective Patient is seen in follow-up for electrolyte imbalance. Sodium level is down to 153 and creatinine is down to 1.32 today. Patient is not a reliable historian. Oral intake remains poor. He is currently maintained on D5W at 150 mL an hour along with potassium replacement. Vital signs are stable. General: Currently sleeping. HEENT: Head exam is unremarkable. Neck is without jugular venous distension. LUNGS: Breath sounds decreased. HEART: Rate and Rhythm are regular. First and second heart sounds normal. No murmurs, rubs or gallops. ABDOMEN: Abdominal exam reveals normal bowel sounds. Non-tender and non- distended. No evidence of peritonitis. EXTREMITITES: No edema. Objective - Vital Signs Vital signs: Vital Signs Temp 98.2 F 11/12/17 05:45 Pulse 72 11/12/17 05:45 Resp 20 11/12/17 05:45 BP 123/59 11/12/17 05:45 Pulse Ox 96 11/12/17 05:45 Intake & Output 11/11/17 11/12/17 11/12/17 18:59 06:59 18:59 Intake Total 236 Output Total 400 650 Balance -164 -650 Intake: Oral 236 Output: Urine 400 650 Other: Voiding Method Indwelling Catheter Indwelling Catheter Indwelling Catheter # Bowel Movements 0 - Labs CBC & Chem 7: 11/12/17 07:45 11/12/17 07:45 Labs: Abnormal Lab Results - Last 24 Hours (Table) 11/11/17 11/12/17 11/12/17 Range/Units 16:32 07:45 07:45 Hgb 11.7 L (13.0-17.5) gm/dL Hct 38.0 L (39.0-53.0) % MCHC 30.7 L (31.0-37.0) g/dL Sodium 158 H 153 H (137-145) mmol/L Chloride 119 H (98-107) mmol/L BUN 22 H (9-20) mg/dL Creatinine 1.32 H (0.66-1.25) mg/dL Glucose 112 H (74-99) mg/dL Calcium 8.0 L (8.4-10.2) mg/dL Microbiology - Last 24 Hours (Table) 11/07/17 19:00 Blood Culture - Preliminary Blood No Growth after 96 hours Assessment and Plan Plan: Assessment: 1. Hypovolemic hypernatremia secondary to lack of oral water intake. Sodium level down to 153 today. 2. Nonoliguric acute kidney injury most to prerenal improving with IV hydration. Creatinine improved to 1.32 today. Unknown baseline creatinine. 3. Hypokalemia from diuretics and poor oral intake. Improved post replacement. Magnesium replete. 4. Benign hypertension. Controlled. 5. Closed head injury. Plan: Continue D5W at 150 mL an hour with 40 mEq of potassium per 1 L bag. Encourage oral intake. Avoid nephrotoxins.
[2017-11-12] MEDS: MULTIVITAMINS, THERA 1 EACH TAB PO SCH (12:30)
--- NOTE | 2017-11-12 16:54 | P.PN ---
Subjective Progress Note Date: 11/12/17 Progress note being dictated for Dr. Schneider 11/11/17/This is a 72-year-old gentleman admitted with severe dehydration and hypernatremia, and multiple other medical issues. Maintained on D5W, sodium worsened today up to 160. Renal function improving. Diet intake remains poor. More alert today ,Answers by giving the "thumbs up", occasionally. Maintained on broad-spectrum antibiotics of Rocephin as per infectious disease. Afebrile, normal WBC. 11/12/17 sitting up in bed, more alert, nodding to communicate. Remains on D5W, sodium decreased to 153, renal function continuing to improve, currently down to 1.32. Afebrile, normal WBC. Objective - Vital Signs Vital signs: Vital Signs Temp 97.3 F L 11/12/17 14:53 Pulse 64 11/12/17 14:53 Resp 18 11/12/17 14:53 BP 137/72 11/12/17 14:53 Pulse Ox 95 11/12/17 14:53 Intake & Output 11/11/17 11/12/17 11/12/17 18:59 06:59 18:59 Intake Total 236 Output Total 400 650 650 Balance -164 -650 -650 Intake: Oral 236 Output: Urine 400 650 650 Other: Voiding Method Indwelling Catheter Indwelling Catheter Indwelling Catheter # Bowel Movements 0 - Exam PHYSICAL EXAM: VITAL SIGNS: As above GENERAL: Sitting up in bed, no acute distress HEENT: Conjunctivae normal. eyes normal. Oral mucosa moist NECK: No JVD. No thyroid enlargement. No LNs CARDIOVASCULAR: Regular S1-S2, no murmurs rubs or gallops RESPIRATION:Breath sounds diminished in the bases. No rhonchi or crackles. ABDOMEN: Soft, nontender . No guarding. no masses palpable. Bowel sounds heard. LEGS: No edema. no swelling PSYCHIATRY: Alert and oriented -1, mood and affect normal. NERVOUS SYSTEM: Contractures present Skin: ulceration-superficial of right arm and right hip.erythema bilateral legs , right thigh,small multiple scabs, nondraining on feet . - Labs CBC & Chem 7: 11/12/17 07:45 11/12/17 07:45 Labs: Abnormal Lab Results - Last 24 Hours (Table) 05/30/18 05/31/18 05/31/18 Range/Units 16:32 07:45 07:45 Hgb 11.7 L (13.0-17.5) gm/dL Hct 38.0 L (39.0-53.0) % MCHC 30.7 L (31.0-37.0) g/dL Sodium 158 H 153 H (137-145) mmol/L Chloride 119 H (98-107) mmol/L BUN 22 H (9-20) mg/dL Creatinine 1.32 H (0.66-1.25) mg/dL Glucose 112 H (74-99) mg/dL Calcium 8.0 L (8.4-10.2) mg/dL Microbiology - Last 24 Hours (Table) 11/07/17 19:00 Blood Culture - Preliminary Blood No Growth after 96 hours Assessment and Plan Assessment: 1. [ Severe dehydration and acute hypernatremia possibly secondary to diminished oral intake, present on admission]. 2. [ Change in mental status, acute metabolic encephalopathy secondary to dehydration]. 3. [ Acute renal failure, possibly prerenal with acute tubular necrosis 4. [ Hyperchloremia]. 5. [Cellulitis, sepsis ruled out 6. [ History of closed head injury with contractures]. 7. [ History of [place] filter placement 8. No code, no CPR, no vent]. Plan: Continue current medication regime ,monitoring and symptomatic treatment. D5W IV fluid rate increased with recheck of electrolytes this afternoon. Strict aspiration precautions, dysphagia diet. Close monitoring of electrolytes with repeat labs ordered for a.m.also. We will attempt to reach spouse, and discuss potential informational hospice meeting. The impression and plan of care has been dictated as directed. : I performed a history and examination of this patient, discussed the same with the dictator. I agree with the dictator's note ,documented as a scribe. Any additional findings or plans will be noted.
--- NOTE | 2017-11-12 17:44 | PN ---
PROGRESS NOTE DATE OF SERVICE: 11/12/2017. REASON FOR FOLLOW UP: Possibly urinary tract infection. INTERVAL HISTORY: The patient is afebrile. He remains to be nonverbal, though also answering some simple questions by nodding his head. No meaningful history could be obtained from this patient. Though breathing comfortably on room air. EXAMINATION: Blood pressure 137/72 with a pulse of 64, temperature 97.3. He is 95% on room air. General description is an elderly male lying in bed in no distress. Respiratory system: Unlabored breathing. Clear to auscultation anteriorly. Heart S1, S2. Regular rate and rhythm. Abdomen soft, no tenderness. Extremities: No edema of the feet. LABS: BUN of 22, creatinine 0.32, hemoglobin 11.7, white count 6.30. Cultures have been negative so far. DIAGNOSTIC IMPRESSION AND PLAN: Patient admitted to the hospital with mental status changes, more likely metabolic. Overall improvement in his metabolic profile. Cultures have been negative. Rocephin can be discontinued at the time of discharge. He did have mild UTI adequately treated. MMODL / IJN: [id number] /
[2017-11-13] MEDS: DEXTROSE 5% IN WATER 1,000 ML with POTASSIUM CHLORIDE 40 MEQ IV SCH ×4 (00:16→18:18)
[2017-11-13] MEDS: HEPARIN SODIUM,PORCINE 5,000 UNIT/ML 1 ML VIAL SQ SCH ×3 (00:17→18:18)
[2017-11-13] MEDS: cefTRIAXone IN SWFI 2,000 MG/20 ML SYRINGE IVP SCH (08:08)
[2017-11-13 09:00] LABS: Basophils % (A) 0 %; Eosinophils # (A) 0.2 k/uL (0-0.7); Eosinophils % (A) 4 %; HGB 11.8 gm/dL (13.0-17.5); Hypochromasia Moderate; Lymphocytes # (A) 2.3 k/uL (1.0-4.8); Lymphocytes % (A) 37 %; MCH 26.6 pg (25.0-35.0); MCHC 31.1 g/dL (31.0-37.0); MCV 85.6 fL (80.0-100.0); Mean Platelet Volume 8.1; Monocytes # (A) 0.3 k/uL (0-1.0); Monocytes % (A) 4 %; Neutrophils # (A) 3.3 k/uL (1.3-7.7); Neutrophils % (A) 52 %; Platelet Count 154 k/uL (150-450); RBC 4.44 m/uL (4.30-5.90); RDW 14.6 % (11.5-15.5); WBC 6.2 k/uL (3.8-10.6)
[2017-11-13 09:11] LABS: Magnesium 2.3 mg/dL (1.6-2.3); Potassium 4.6 mmol/L (3.5-5.1)
--- NOTE | 2017-11-13 09:35 | P.PN ---
Subjective Patient is seen in follow-up for electrolyte imbalance. Sodium level is down to 146 and creatinine is down to 1.07 today. Patient is not a reliable historian. Oral intake remains poor. He is currently maintained on D5W at 150 mL an hour along with potassium replacement. Vital signs are stable. General: Currently sleeping. HEENT: Head exam is unremarkable. Neck is without jugular venous distension. LUNGS: Breath sounds decreased. HEART: Rate and Rhythm are regular. First and second heart sounds normal. No murmurs, rubs or gallops. ABDOMEN: Abdominal exam reveals normal bowel sounds. Non-tender and non- distended. No evidence of peritonitis. EXTREMITITES: No edema. Objective - Vital Signs Vital signs: Vital Signs Temp 97.7 F 11/13/17 05:30 Pulse 66 11/13/17 05:30 Resp 20 11/13/17 05:30 BP 110/63 11/13/17 05:30 Pulse Ox 97 11/13/17 05:30 Intake & Output 11/12/17 11/13/17 11/13/17 18:59 06:59 18:59 Output Total 650 1150 Balance -650 -1150 Output: Urine 650 1150 Other: Voiding Method Indwelling Catheter # Voids 0 # Bowel Movements 1 1 - Labs CBC & Chem 7: 11/13/17 08:13 11/13/17 08:13 Labs: Abnormal Lab Results - Last 24 Hours (Table) 11/13/17 11/13/17 Range/Units 08:13 08:13 Hgb 11.8 L (13.0-17.5) gm/dL Hct 38.0 L (39.0-53.0) % Sodium 146 H (137-145) mmol/L Chloride 114 H (98-107) mmol/L Glucose 106 H (74-99) mg/dL Calcium 8.0 L (8.4-10.2) mg/dL Microbiology - Last 24 Hours (Table) 11/07/17 19:00 Blood Culture - Preliminary Blood No Growth after 120 hours Assessment and Plan Plan: Assessment: 1. Hypovolemic hypernatremia secondary to lack of oral water intake. Sodium level down to 146 today. 2. Nonoliguric acute kidney injury most to prerenal improving with IV hydration. Creatinine improved to 1.07 today. Unknown baseline creatinine. 3. Hypokalemia from diuretics and poor oral intake. Improved post replacement. Magnesium replete. 4. Benign hypertension. Controlled. 5. Closed head injury. Plan: Continue D5W at 150 mL an hour with 40 mEq of potassium per 1 L bag. Encourage oral intake. Avoid nephrotoxins.
--- NOTE | 2017-11-13 14:00 | PN ---
PROGRESS NOTE DATE OF SERVICE: 11/13/2017 REASON FOR FOLLOWUP: Possible UTI. INTERVAL HISTORY: The patient is afebrile. He seemed to be more awake and alert. Currently being fed by his family. chest pain or shortness of breath or cough. and no nausea or vomiting has been reported or any diarrhea. PHYSICAL EXAMINATION: On examination, his blood pressure is 110/63 with a pulse of 66, temperature 97.7. He is 97% on room air. General description is an elderly male lying in bed in no distress. RESPIRATORY SYSTEM: Unlabored breathing, clear to auscultation anteriorly. HEART: S1, S2. Regular rate and rhythm. ABDOMEN: Soft, no tenderness. Left leg with minimal erythema. LABS: Hemoglobin 11.8, white count 6.2 with a BUN of 13, creatinine 1.07. DIAGNOSTIC IMPRESSION AND PLAN: Patient admitted to the hospital with mental status changes, more likely metabolic as the patient did have significant dehydration with a BUN and creatinine has normalized. Possible urinary tract infection adequately treated, antibiotic discontinued. No need for antibiotic on discharge. Family was at bedside and agreed about his care. MMODL / IJN: [id number] /
--- NOTE | 2017-11-13 14:30 | P.DS ---
Providers Date of admission: 11/07/17 01:57 Expected date of discharge: 11/13/17 Attending physician: Laura Schneider Consults: 11/07/17 11:32 Consult Physician Urgent Consulting Provider: Kian Chauhan Consult Reason/Comments: high sodium Do you want consulting provider notified?: Yes 11/08/17 16:39 Consult Physician Routine Consulting Provider: Ju Garcia Consult Reason/Comments: sepsis? Do you want consulting provider notified?: Yes Primary care physician: [facility] Course: Final Diagnoses: 1. [ Severe dehydration and acute hypovolemic hypernatremia possibly secondary to diminished oral intake, present on admission]. 2. [ Change in mental status, acute metabolic encephalopathy secondary to dehydration]. 3. [ Acute renal failure, possibly prerenal with acute tubular necrosis 4. [ Hyperchloremia]. 5. [Cellulitis, sepsis ruled out 6. [ History of closed head injury with contractures]. 7. [ History of [place] filter placement 8. No code, no CPR, no vent]. 9. Mild acute UTI, completed antibiotic therapy. Hospital course:This is a 72-year-old gentleman admitted with severe dehydration and hypernatremia, and multiple other medical issues. Evaluated by nephrology and infectious disease. Maintained on antibiotics and IV fluids of D5W. Significant clinical improvement, Sodium normalized, renal function improving. Diet intake remains poor. Discussed with spouse options of PEG tube ,comfort care as patient's oral intake remains inadequate. No PEG tube, not ready for comfort care as per patient's -legal guardian. Informational hospice visit recommended for to obtain at [facility]. Patient has been cleared for discharge by nephrology. Patient will be discharged to [facility] in a stable condition with guarded prognosis. PHYSICAL EXAM: GENERAL: Alert and oriented 1, Sitting up in bed, no acute distress CARDIOVASCULAR: Regular S1-S2, no murmurs rubs or gallops RESPIRATION:Breath sounds diminished in the bases. No rhonchi or crackles. ABDOMEN: Soft, nontender . No guarding. no masses palpable. Bowel sounds heard. PSYCHIATRY: Alert and oriented -1, mood and affect normal. NERVOUS SYSTEM: Contractures present Skin: Groin emaciated,ulceration-superficial of right arm and right hip.erythema bilateral legs, right thigh,small multiple scabs, nondraining on feet. The impression and plan of care has been dictated as directed. : I performed a history and examination of this patient, discussed the same with the dictator. I agree with the dictator's note ,documented as a scribe. Any additional findings or plans will be noted. Time taken: 35 minutes Patient Condition at Discharge: Stable Plan - Discharge Summary Discharge Rx Participant: No New Discharge Prescriptions: New Heparin Sodium,Porcine [Heparin Sodium] 5,000 unit SQ Q12HR #1 vial Continue Multivitamins, Thera [Multivitamin (formulary)] 1 tab PO DAILY Discontinued Triamterene/Hydrochlorothiazid [Triamterene-Hctz 37.5-25 mg Tb] 1 tab PO DAILY Discharge Medication List Multivitamins, Thera [Multivitamin (formulary)] 1 tab PO DAILY 11/07/17 [History ] Heparin Sodium,Porcine [Heparin Sodium] 5,000 unit SQ Q12HR #1 vial 11/13/17 [Rx ] Follow up Appointment(s)/Referral(s): Nicola Venegas MD [REFERRING] - 3 Days (while at [facility]) Momo Louise DO [Primary Care Provider] - 1 Week (after dc from subacute rehab) Kian Chauhan DO [STAFF PHYSICIAN] - 1 Week Patient Instructions/Handouts: Acute Kidney Injury (DC) Activity/Diet/Wound Care/Special Instructions: Antibx regime completed as per ID. Regular diet, dysphagia 3, one on one feed with aspiration precautions. Change positions every 2 hours while awake. Stay off wounds. Fall precautions. cbc,bmp in 2 days
[2017-11-13 15:23] VITALS: BP 116/70; PULSE 75; RESP 16; TEMP 98.3
[2017-11-13] MEDS: MULTIVITAMINS, THERA 1 EACH TAB PO SCH (18:18)
== END 2017-11-13 18:53 | DRG 682 ==
LOC: EC 01:14 → 4MS4W 01:57
PROVIDERS: ADMIT Hospitalist; ATTEND Hospitalist
DX: N17.0 Acute kidney failure with tubular necrosis (principal); G93.41 Metabolic encephalopathy; E87.0 Hyperosmolality and hypernatremia; L03.115 Cellulitis of right lower limb; L03.116 Cellulitis of left lower limb; N39.0 Urinary tract infection, site not specified; E86.0 Dehydration; E86.1 Hypovolemia; E87.6 Hypokalemia; E87.8 Other disorders of electrolyte and fluid balance, not elsewhere classified; I10 Essential (primary) hypertension; Z87.820 Personal history of traumatic brain injury; T50.2X5A Adverse effect of carbonic-anhydrase inhibitors, benzothiadiazides and other diuretics, initial encounter; Z86.718 Personal history of other venous thrombosis and embolism; Z90.49 Acquired absence of other specified parts of digestive tract; Z66 Do not resuscitate; L98.499 Non-pressure chronic ulcer of skin of other sites with unspecified severity; L53.9 Erythematous condition, unspecified
CPT/HCPCS: 36415; 71045; 73502; 80048; 80053; 81001; 83735; 83935; 84132; 84295; 84484; 85025; 85027; 87040; 87086; 96365; 99285

== ENCOUNTER 2017-12-04 16:48 | Inpatient (IN) | payer MEDICARE, BC ==
--- NOTE | 2017-12-04 17:17 | ED ---
Extremity Problem HPI - General Chief complaint: Extremity Problem,Nontraumatic Stated complaint: DVT Time Seen by Provider: 12/04/17 17:03 Source: EMS Mode of arrival: EMS Limitations: altered mental status, physical limitation - Related Data Home Medications Medication Instructions Recorded Confirmed Multivitamins, Thera [Multivitamin 1 tab PO DAILY 11/07/17 12/04/17 (formulary)] Previous Rx's Medication Instructions Recorded Heparin Sodium,Porcine [Heparin 5,000 unit SQ Q12HR #1 vial 11/13/17 Sodium] Allergies Allergy/AdvReac Type Severity Reaction Status Date / Time No Known Allergies Allergy Verified 12/04/17 17:11 Review of Systems ROS Statement: Those systems with pertinent positive or pertinent negative responses have been documented in the HPI. ROS Other: All systems not noted in ROS Statement are negative. Past Medical History Past Medical History: Deep Vein Thrombosis (DVT) Additional Past Medical History / Comment(s): closed head injury, contracture left wrist hand, and Left leg, edema lower legs History of Any Multi-Drug Resistant Organisms: None Reported Past Surgical History: Appendectomy Additional Past Surgical History / Comment(s): antonio filter, left leg tendon surgery Past Anesthesia/Blood Transfusion Reactions: No Reported Reaction Past Psychological History: Depression Smoking Status: Never smoker Past Alcohol Use History: None Reported Past Drug Use History: None Reported - Past Family History Father History Unknown: Yes Additional Family Medical History / Comment(s): adopted only child no history available General Exam Limitations: altered mental status, physical limitation Course Vital Signs 12/04/17 16:57 Temperature 97.1 F L Pulse Rate 63 Respiratory 18 Rate Blood Pressure 136/61 O2 Sat by Pulse 94 L Oximetry Disposition Referrals: Nonstaff,Physician [Primary Care Provider] - 1-2 days
[2017-12-04] MEDS ORDERED: SODIUM CHLORIDE 0.9% 1,000 ML IV STA (17:21)
[2017-12-04] MEDS ORDERED: PIPERACILLIN-TAZOBACTAM 3.375 GM in DEXTROSE/WATER 1 50ML.BAG IVPB STA (17:21)
--- NOTE | 2017-12-04 17:29 | ED ---
Extremity Problem HPI - General Chief complaint: Extremity Problem,Nontraumatic Stated complaint: DVT Time Seen by Provider: 12/04/17 17:03 Source: RN/MD, EMS, RN notes reviewed Mode of arrival: EMS Limitations: altered mental status, physical limitation - History of Present Illness Initial comments: This is a 72-year-old male who presents to the emergency department with chief complaint of acute DVT. Patient is nonverbal, nonmobile and a resident of [facility]. 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 He has been receiving subq injections of epinephrine since November 14, 2017. Patient presents to the ER with an acute DVT of the left lower extremity that was positive on venous doppler. The nurse that has been caring for patient reports that patient has also had redness to the left lower extremity and that it became warm and inflamed today. States patient recently finished a course of antibiotics for left lower extremity cellulitis. Patient was admitted on and was treated for cellulitis with IV zosyn. - Related Data Home Medications Medication Instructions Recorded Confirmed Multivitamins, Thera [Multivitamin 1 tab PO DAILY 11/07/17 12/04/17 (formulary)] Previous Rx's Medication Instructions Recorded Heparin Sodium,Porcine [Heparin 5,000 unit SQ Q12HR #1 vial 11/13/17 Sodium] Allergies Allergy/AdvReac Type Severity Reaction Status Date / Time No Known Allergies Allergy Verified 12/04/17 17:11 Review of Systems ROS Statement: Those systems with pertinent positive or pertinent negative responses have been documented in the HPI. ROS Other: All systems not noted in ROS Statement are negative. Past Medical History Past Medical History: Deep Vein Thrombosis (DVT) Additional Past Medical History / Comment(s): closed head injury, contracture left wrist hand, and Left leg, edema lower legs History of Any Multi-Drug Resistant Organisms: None Reported Past Surgical History: Appendectomy Additional Past Surgical History / Comment(s): antonio filter, left leg tendon surgery Past Anesthesia/Blood Transfusion Reactions: No Reported Reaction Past Psychological History: Depression Smoking Status: Never smoker Past Alcohol Use History: None Reported Past Drug Use History: None Reported - Past Family History Father History Unknown: Yes Additional Family Medical History / Comment(s): adopted only child no history available General Exam Limitations: altered mental status, physical limitation General appearance: alert, in no apparent distress Head exam: Present: atraumatic, normocephalic Eye exam: Present: normal appearance, PERRL, EOMI ENT exam: Present: normal exam, normal oropharynx Neck exam: Present: normal inspection Respiratory exam: Present: normal lung sounds bilaterally. Absent: respiratory distress Cardiovascular Exam: Present: regular rate, normal rhythm, normal heart sounds Extremities exam: Present: pedal edema (bilateral ), other (distal LLE erythema , warmth and swelling) Neurological exam: Present: alert, other (oriented x1) Course Vital Signs 12/04/17 16:57 Temperature 97.1 F L Pulse Rate 63 Respiratory 18 Rate Blood Pressure 136/61 O2 Sat by Pulse 94 L Oximetry Medical Decision Making - Medical Decision Making This is a 72-year-old male who presents to the emergency department with chief complaint of left lower extremity DVT. History was limited as patient is nonverbal. He is also immobile. Acute DVT that was caught on ultrasound venous Doppler at patient's residence of [facility]. He is already on subq heparin for history of DVTs. It also appears that patient does have cellulitis of the left lower extremity with redness and warmth. He was treated with Zosyn last month for the same problem. Patient will be admitted to Dr. Rosenberg with consults to infectious disease and hematology. Patient will be started on heparin drip. He'll also be started on Zosyn. Labs are pending at this time. Vital signs are stable and patient is in no acute distress. Disposition Clinical Impression: Deep vein thrombosis of lower extremity, Cellulitis of left lower extremity Disposition: ADMITTED IP TO THIS [facility] Condition: Stable Is patient prescribed a controlled substance at d/c from ED?: No Referrals: Nonstaff,Physician [Primary Care Provider] - 1-2 days Time of Disposition: 18:12
[2017-12-04 17:52] LABS: Basophils % (A) 0 %; Eosinophils # (A) 0.2 k/uL (0-0.7); Eosinophils % (A) 3 %; HGB 12.1 gm/dL (13.0-17.5); Lymphocytes # (A) 2.4 k/uL (1.0-4.8); Lymphocytes % (A) 39 %; MCH 27.6 pg (25.0-35.0); MCHC 32.8 g/dL (31.0-37.0); MCV 84.3 fL (80.0-100.0); Mean Platelet Volume 6.5; Monocytes # (A) 0.4 k/uL (0-1.0); Monocytes % (A) 6 %; Neutrophils # (A) 3.1 k/uL (1.3-7.7); Neutrophils % (A) 49 %; RBC 4.39 m/uL (4.30-5.90); RDW 15.1 % (11.5-15.5); WBC 6.3 k/uL (3.8-10.6)
[2017-12-04 17:54] LABS: Platelet Count 319 k/uL (150-450)
[2017-12-04] MEDS ORDERED: HEPARIN SODIUM,PORCINE 5,000 UNIT/ML 1 ML VIAL IV PRN (17:54)
[2017-12-04] MEDS ORDERED: HEPARIN SODIUM,PORCINE 10,000 UNIT/ML 1 ML VIAL IV ONE (17:54)
[2017-12-04] MEDS ORDERED: MORPHINE SULFATE 2 MG/ML SYRINGE IV PRN (17:55)
[2017-12-04] MEDS ORDERED: NALOXONE 0.4 MG/ML 1 ML VIAL IV PRN (17:55)
[2017-12-04] MEDS ORDERED: ACETAMINOPHEN TAB 325 MG TAB PO PRN (17:55)
[2017-12-04 18:02] LABS: ALT 23 U/L (21-72); AST 16 U/L (17-59); Albumin 3.1 g/dL (3.5-5.0); Alkaline Phosphatase 125 U/L (38-126); Anion Gap 9 mmol/L; Blood Urea Nitrogen 15 mg/dL (9-20); Calcium 8.4 mg/dL (8.4-10.2); Carbon Dioxide 28 mmol/L (22-30); Chloride 100 mmol/L (98-107); Glucose 121 mg/dL (74-99); Potassium 4.1 mmol/L (3.5-5.1); Sodium 137 mmol/L (137-145); Total Bilirubin 0.4 mg/dL (0.2-1.3); Total Protein 6.4 g/dL (6.3-8.2)
[2017-12-04 18:07] LABS: INR 1.1 (<1.2); Prothrombin Time 10.4 sec (9.0-12.0)
[2017-12-04 18:08] LABS: Partial Thromboplastin Time 22.1 sec (22.0-30.0)
[2017-12-04] MEDS: SODIUM CHLORIDE 0.9% 1,000 ML IV SCH (18:33)
[2017-12-04] MEDS: HEPARIN SOD,PORK IN 0.45% NACL 25,000 UNIT in 0.45% NACL 1 500ML.BAG IV SCH (18:35)
[2017-12-04 20:16] VITALS: BMI 26.4
--- NOTE | 2017-12-04 21:56 | HP ---
HISTORY AND PHYSICAL CHIEF COMPLAINTS: Left leg pain and swelling. 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 Louise in the outpatient setting, is in [facility] at this time. The patient was recently admitted to [facility] with severe dehydration with diminished p.o. intake. The patient was discharged. Currently, according to the caregiver, the patient is having sufficient p.o. intake even by sitting at the dining table. Patient is unable to give any coherent history. Patient is mostly nonverbal, and most of the history is taken from my discussion with staff, ER physician, review of the chart, as well as discussion with the caregiver at this time. The patient is admitted for further evaluation and treatment. There is no history of any trauma. The patient was also found to have acute DVT of the left lower extremity that is positive on venous Doppler. PAST MEDICAL HISTORY: 1. History of DVT. 2. History of closed-head injury. 3. Appendectomy. 4. Depression. MEDICATIONS PRIOR TO ADMISSION: 1. Multivitamins 1 p.o. daily. 2. Heparin 5000 units subcutaneously b.i.d. ALLERGIES: NONE. Family history, social history, review of systems could not be taken; unknown. The patient is adopted, also. PHYSICAL EXAMINATION: Patient is conscious, nonverbal. Pulse 64, blood pressure 126/70, respiration 14, temperature 98.7, pulse ox 96% on room air. HEENT: Conjunctivae normal. Oral mucosa moist. NECK: No jugular venous distention. No carotid bruit. No lymph node enlargement. CARDIOVASCULAR SYSTEM: S1, S2 muffled. RESPIRATORY SYSTEM: Breath sounds diminished at the bases. A few rhonchi. No crackles. ABDOMEN: Soft, nontender. No mass palpable. LEGS: Left leg swelling as well as erythema present. NERVOUS SYSTEM: Higher functions as mentioned earlier. Diffuse contractures. Unable to cooperate with a full exam. LYMPHATICS: No lymph node palpable in neck, axillae or groin. SKIN: Significant erythema of the left leg present. Dry skin also present on the left foot. JOINTS: No active deforming arthropathy. Contractures present. LABS: WBC 6.3, hemoglobin 12.1. Glucose 121. ASSESSMENT: 1. Acute left leg cellulitis. 2. Acute deep venous thrombosis of the left lower limb. 3. Left leg swelling. 4. Old left leg deep venous thrombosis and IVC filter. 5. Closed-head injury. 6. History of depression. 7. History of IVC filter. 8. History left leg tendon surgery. 9. NO CODE. RECOMMENDATIONS AND DISCUSSION: In this 72-year-old gentleman who presented with multiple complex medical issues, at this time I recommend continuing the current medications, continue with symptomatic treatment. Otherwise, I would recommend broad-spectrum IV antibiotics. I would recommend continuing the IV heparin. Continue the rest of the medications. I would also add IV Kefzol. Repeat labs. IV heparin, as mentioned, was started earlier. We will also recommend proton pump inhibitors as well. As mentioned earlier, prognosis guarded. The patient is NO CODE as well. Discussed at length with the family. Guarded prognosis. Further recommendations to follow. BROOKE / MAYURIN: [id number] /
[2017-12-04] MEDS: ceFAZolin IN SWFI 2 GM/20 ML SYRINGE IVP SCH (21:57)
[2017-12-05] MEDS ORDERED: PIPERACILLIN-TAZOBACTAM 3.375 GM in DEXTROSE/WATER 1 50ML.BAG IVPB SCH (02:00)
[2017-12-05 08:41] LABS: Basophils % (A) 0 %; Eosinophils # (A) 0.1 k/uL (0-0.7); Eosinophils % (A) 2 %; HCT 35.8 % (39.0-53.0); HGB 11.4 gm/dL (13.0-17.5); Lymphocytes # (A) 1.9 k/uL (1.0-4.8); Lymphocytes % (A) 33 %; MCH 26.5 pg (25.0-35.0); MCHC 31.8 g/dL (31.0-37.0); MCV 83.4 fL (80.0-100.0); Mean Platelet Volume 6.8; Monocytes # (A) 0.4 k/uL (0-1.0); Monocytes % (A) 7 %; Neutrophils # (A) 3.2 k/uL (1.3-7.7); Neutrophils % (A) 56 %; Platelet Count 277 k/uL (150-450); RDW 14.9 % (11.5-15.5); WBC 5.7 k/uL (3.8-10.6)
[2017-12-05 08:51] LABS: INR 1.1 (<1.2); Partial Thromboplastin Time 63.6 sec (22.0-30.0); Prothrombin Time 10.8 sec (9.0-12.0)
[2017-12-05] MEDS: PANTOPRAZOLE 40 MG/10 ML VIAL IVP SCH (09:36)
[2017-12-05] MEDS: ceFAZolin IN SWFI 2 GM/20 ML SYRINGE IVP SCH ×2 (09:39→15:11)
[2017-12-05] MEDS: SODIUM CHLORIDE 0.9% 1,000 ML IV SCH (09:40)
[2017-12-05] MEDS: HEPARIN SOD,PORK IN 0.45% NACL 25,000 UNIT in 0.45% NACL 1 500ML.BAG IV SCH (11:31)
--- NOTE | 2017-12-05 17:42 | CONS ---
CONSULTATION REASON FOR CONSULTATION: Deep venous thrombosis. Theo is a 72-year-old gentleman who is known to have close head injury about 15 years ago with contractures of left was and he has had contractures of left wrist and hand and he has been in a detention resident. He presented to the Emergency referred by the detention resident in [facility]. The patient was brought into the emergency department on the date on December 04 because of swelling in his left leg and he had venous Doppler which was positive for deep venous thrombosis. The patient recently was also discharged from this facility as well and he mostly has been bedridden and nonambulatory. The patient is nonverbal and cannot provide any information. His information was information from reviewing his records and the detention records and also was discussed with the nursing staff as well. Accordingly, he has a history of deep venous thrombosis over 15 years ago and he had an inferior vena cava filter placement as well at that time, but there was no anticoagulation up till this time when he got admitted and he was started on intravenous heparin. PAST MEDICAL HISTORY: Per records is significant for DVT, close head injury, appendectomy and depression. MEDICATION ALLERGIES: No known drug allergy listed in his record. CURRENT MEDICATION: Include the cefazolin 2 g IV every 6 hours. Tylenol as needed, heparin IV infusion. Continuous infusion, morphine sulfate as needed, Protonix 40 mg IV daily. REVIEW OF SYSTEMS: Could not be obtained from the patient. FAMILY HISTORY AND SOCIAL HISTORY: Also could not be obtained from the patient, other than being a detention resident. PHYSICAL EXAMINATION: He is nonverbal. His vital signs are temperature 98.6 afebrile, pulse is 58, respirations 16, blood pressure 138/73. HEENT: No scleral icterus. Oral mucosa intact. NECK: Supple. Lungs are clear to auscultation and percussion. Heart is regular rate and rhythm. Abdomen is soft. No obvious organomegaly or masses or ascites. Extremities have edema and erythema on the left lower extremity. LABORATORY DATA: WBC are 5.7, hemoglobin 11.4, hematocrit 35.8, platelet 277. Sodium 137, potassium 4.1, chloride 100, CO2 is 28, BUN is 15, creatinine 0.97. IMPRESSION: 1. Acute left lower extremity deep venous thrombosis. This is likely related to immobilization and inactivity. 2. Remote history of deep venous thrombosis and inferior vena cava filter placement over 15 years ago per records. 3. Multiple other comorbidities. RECOMMENDATION: 1. The patient will require at least 3 months of anticoagulation. However, the risk of bleeding should be balanced against the risk of potential benefit. The patient apparently is a mobile and is at a detention facility. Hopefully, this should but minimize his risk of bleeding. 2. In regard to long-term anticoagulation, after my discussion with the nursing staff, he has issues with swallowing pills and there is a swallow evaluation in process. He may benefit from anticoagulation with that with low-molecular weight heparin at least for the next 3 months and then subsequently risk versus benefit from continuous anticoagulation should be readdressed. Thank you very much. BROOKE / MAYURIN: [id number] /
[2017-12-05] MEDS ORDERED: ENOXAPARIN 120 MG/0.8 ML SYRINGE SQ SCH (20:00)
--- NOTE | 2017-12-05 20:48 | PN ---
PROGRESS NOTE DATE OF SERVICE: 12/05/2017. INTERVAL HISTORY: This 72-year-old gentleman was admitted with acute DVT as well as left leg ulcers and cellulitis. The patient is on IV heparin. The patient also had IVC filter. Dr. Jeffers has seen the patient and recommended at least 3 months of anticoagulation. The patient is on IV heparin and patient is nonverbal. EXAM: The pulse is 58 and the sensorium unchanged. Blood pressure 130/87, respirations 16, temperature 98.6, pulse ox 98% room air. HEENT: Conjunctivae normal. Oral mucosa moist. NECK: No jugular venous distention. CARDIOVASCULAR: S1, S2 muffled. RESPIRATORY: Breath sounds diminished in the bases. A few scattered rhonchi. ABDOMEN: Soft, nontender. NERVOUS SYSTEM: Unchanged. Left leg has swelling and erythema is present. skin cellultits, pressure ulcer LABS: WBC is 5.7 and hemoglobin is 1.4. ASSESSMENT: 1. Acute left leg deep venous thrombosis. 2. Acute left leg cellulitis. and rt hip pressure ulcer stage 2 3. History of previous left leg deep venous thrombosis. 4. Previous inferior vena cava filter. 5. Left leg swelling. 6. Closed-head injury. 7. History depression. 8. History of left leg tendon surgery. 9. NO CODE, NO CPR, NO VENTILATOR. RECOMMENDATIONS AND DISCUSSION: I recommend to continue current medical management and symptomatic treatment. Continue with antibiotics. I would also recommend to continue with IV heparin. Dr. Jeffers's input appreciated. Otherwise, long-term anticoagulation as mentioned earlier. Further recommendations to follow. MMODL / IJN: [id number] / [facility] CENTERBere
[2017-12-05] MEDS: ENOXAPARIN 80 MG/0.8 ML SYRINGE SQ SCH (21:38)
[2017-12-06] MEDS: ceFAZolin IN SWFI 2 GM/20 ML SYRINGE IVP SCH ×4 (01:02→23:48)
[2017-12-06] MEDS: SODIUM CHLORIDE 0.9% 1,000 ML IV SCH ×3 (04:52→21:57)
[2017-12-06] MEDS ORDERED: NYSTAT-TRIAMCIN 100,000-0.1 UNIT/GM-% CREAM 30 GM TUBE TOPICAL SCH (09:00)
[2017-12-06] MEDS: PANTOPRAZOLE 40 MG/10 ML VIAL IVP SCH (09:19)
[2017-12-06] MEDS: NYSTATIN 100,000UNIT/GM CREAM 30 GM TUBE TOPICAL SCH ×2 (09:19→21:57)
[2017-12-06] MEDS: ENOXAPARIN 80 MG/0.8 ML SYRINGE SQ SCH (09:19)
[2017-12-06] MEDS: TRIAMCINOLONE 0.1% CREAM 80 GM TUBE TOPICAL SCH ×2 (09:19→21:57)
--- NOTE | 2017-12-06 09:28 | CONS ---
CONSULTATION DATE OF SERVICE: 12/05/2017. REASON FOR CONSULTATION: 1. Left lower extremity cellulitis. 2. Right hip wound. HISTORY OF PRESENT ILLNESS: The patient is a 72-year-old male who is currently has been at [facility] who apparently has been diagnosed with acute DVT of the left lower extremity. The patient also noted to have more swelling and redness to the left leg. Apparently the patient has recently finished a course of antibiotic therapy. With these symptoms, the patient has been transferred to the [facility] for further evaluation. Patient has been admitted to the hospital and currently managed for underlying DVT as well as cellulitis. Infectious Disease was consulted for further recommendation of antibiotic therapy. The patient is currently not a good historian and unable to provide any reliable history. So most of the information has been obtained from review of the chart and nursing staff. REVIEW OF SYSTEMS: Could not be reliably obtained. The positive points have been mentioned in HPI. PAST MEDICAL HISTORY: Significant for closed head injury, contusion left wrist, lower extremity cellulitis and DVT. PAST SURGICAL HISTORY: Appendectomy, [place] filter placement, left leg tendon surgery. SOCIAL HISTORY: No history of smoking, drinking or drug use. FAMILY HISTORY: No pertinent findings noticed. ALLERGIES: No known drug allergies. MEDICATIONS: The patient is currently on Protonix, Narcan, morphine sulfate, Lovenox, cefazolin 2 g q.8h and Tylenol. EXAMINATION: Blood pressure is 138/73, pulse of 58, temperature 98.6. He is 92% on room air. General description is an elderly male lying in bed in no distress. No tachypnea or accessory muscle of respiration use. HEENT: Shows slight pallor. No scleral icterus. Oral mucosa is dry. No pharyngeal erythema or thrush. NECK: Trachea central. No thyromegaly. LUNGS: Unlabored breathing. Clear to auscultation anteriorly. HEART: S1, S2. Regular rate and rhythm. ABDOMEN: Soft, no tenderness. Left leg with minimal swelling, slight redness, minimally warm to touch. No skin breakdown. No drainage. The patient does have 2 small stage II pressure ulcers to the right hip area with no evidence of any cellulitis. NEUROLOGICAL: The patient is currently awake and alert. Orientation not done because the patient nonverbal. LABS: Hemoglobin 11.4, white count 5.7, BUN of 15, creatinine 0.97. Electrolytes have been normal. Liver enzymes are normal. Blood culture obtained, currently pending. DIAGNOSTIC IMPRESSION AND PLAN: 1. Patient with admission hospital with left leg swelling and redness in a patient who has been diagnosed with deep venous thrombosis component of possible cellulitis in the patient noticed to have erythema to the left leg with minimal warmth to touch, but no significant fever or elevated white count. 2. Patient with right hip stage II pressure ulcer. No cellulitis. PLAN: 1. We will keep the patient on cefazolin 2 g q.8h short course. 2. We will apply Mycolog cream to the left leg rash daily twice a day. 3. Aquacel Silver dressing to the right hip wound and keep the area off the pressure. 4. We will follow up on the clinical condition and culture to further adjust medication if needed. Thank you for this consultation. I will follow this patient along with you. MMODL / IJN: [id number] /
[2017-12-06 09:58] LABS: Basophils % (A) 0 %; Eosinophils # (A) 0.1 k/uL (0-0.7); Eosinophils % (A) 2 %; HCT 36.6 % (39.0-53.0); HGB 11.5 gm/dL (13.0-17.5); Lymphocytes # (A) 1.5 k/uL (1.0-4.8); Lymphocytes % (A) 34 %; MCH 26.4 pg (25.0-35.0); MCHC 31.3 g/dL (31.0-37.0); MCV 84.4 fL (80.0-100.0); Mean Platelet Volume 6.3; Monocytes # (A) 0.3 k/uL (0-1.0); Monocytes % (A) 6 %; Neutrophils # (A) 2.3 k/uL (1.3-7.7); Neutrophils % (A) 55 %; Platelet Count 324 k/uL (150-450); RBC 4.34 m/uL (4.30-5.90); WBC 4.3 k/uL (3.8-10.6)
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
--- NOTE | 2017-12-07 00:16 | PN ---
PROGRESS NOTE DATE OF SERVICE: 12/06/2017. REASON FOR FOLLOWUP: Left lower extremity cellulitis. INTERVAL HISTORY: The patient is afebrile. He is breathing comfortably. He is more awake, alert, however, unable to provide any reliable history. No nausea, vomiting, or any diarrhea has been noticed. EXAMINATION: Blood pressure 114/64, pulse of 73, temperature 97.9. He is 92% on room air. General description is an elderly male lying in bed in no distress. Respiratory system: Unlabored breathing. Clear to auscultation anteriorly. Heart S1, S2. Regular rate and rhythm. Abdomen soft, no tenderness. Left leg swelling and redness slightly decreased. LABS: Hemoglobin 11.5, white count 4.3. DIAGNOSTIC IMPRESSION AND PLAN: 1. Patient with left leg swelling and redness with questionable cellulitis. Continue local care with Mycolog cream along with Cefazolin. 2. Right hip wound stage II pressure ulcer. Local wound care with Aquacel silver dressing. MMODL / IJN: [id number] /
[2017-12-07] MEDS: ENOXAPARIN 80 MG/0.8 ML SYRINGE SQ SCH (10:00)
[2017-12-07] MEDS: ceFAZolin IN SWFI 2 GM/20 ML SYRINGE IVP SCH ×2 (10:00→15:39)
[2017-12-07] MEDS: PANTOPRAZOLE 40 MG/10 ML VIAL IVP SCH (10:01)
[2017-12-07] MEDS: TRIAMCINOLONE 0.1% CREAM 80 GM TUBE TOPICAL SCH ×2 (10:01→21:48)
[2017-12-07] MEDS: NYSTATIN 100,000UNIT/GM CREAM 30 GM TUBE TOPICAL SCH ×2 (10:01→21:48)
[2017-12-07 10:36] LABS: Basophils % (A) 1 %; Eosinophils # (A) 0.1 k/uL (0-0.7); Eosinophils % (A) 2 %; HGB 12.1 gm/dL (13.0-17.5); Hypochromasia Slight; Lymphocytes # (A) 1.4 k/uL (1.0-4.8); Lymphocytes % (A) 33 %; MCH 26.6 pg (25.0-35.0); MCHC 30.9 g/dL (31.0-37.0); MCV 85.9 fL (80.0-100.0); Mean Platelet Volume 6.4; Monocytes # (A) 0.2 k/uL (0-1.0); Monocytes % (A) 6 %; Neutrophils # (A) 2.6 k/uL (1.3-7.7); Neutrophils % (A) 58 %; Platelet Count 334 k/uL (150-450); RBC 4.55 m/uL (4.30-5.90); RDW 15.3 % (11.5-15.5); WBC 4.4 k/uL (3.8-10.6)
[2017-12-07] MEDS: SODIUM CHLORIDE 0.9% 1,000 ML IV SCH (14:23)
[2017-12-07 15:28] VITALS: RESP 18
--- NOTE | 2017-12-07 16:30 | P.PN ---
Subjective Progress Note Date: 12/07/17 Progress note being dictated for Dr. Rosenberg Interval history: This a 72-year-old gentleman admitted with acute DVT of left leg, acute left leg cellulitis, right hip pressure ulcer and multiple other medical issues. Evaluated by speech therapy, aspiration precautions, thin liquids with no straws recommended. Anticoagulation as per hematology. Maintained on IV antibiotics/Wound Care as per infectious disease.Denies chest pain, palpitations. T-max 99.1. Objective - Vital Signs Vital signs: Vital Signs Temp 99.1 F 12/07/17 14:53 Pulse 74 12/07/17 14:53 Resp 18 12/07/17 14:53 BP 130/69 12/07/17 14:53 Pulse Ox 94 L 12/07/17 14:53 Intake & Output 12/06/17 12/07/17 12/07/17 18:59 06:59 18:59 Intake Total 480 Balance 480 Weight 79 kg Intake: Oral 480 Other: Voiding Method Diaper Incontinent # Voids 3 2 3 # Bowel Movements 0 0 - Exam PHYSICAL EXAM: VITAL SIGNS: As above GENERAL: Sitting up in bed, nonverbal HEENT: Conjunctivae normal. eyes normal. Oral mucosa moist NECK: No JVD. No thyroid enlargement. No LNs CARDIOVASCULAR: S1, S2 muffled. No murmur RESPIRATION: Breath sounds diminished in the bases. Occasional scattered rhonchi,no crackles. ABDOMEN: Soft, nontender . No guarding. no masses palpable.Bowel sounds heard. LEGS: Bilateral leg edema, left greater than right with left leg cellulitis, right gluteal area pressure ulcer; wounds dry without drainage NERVOUS SYSTEM: Unable to fully evaluate, sensorium unchanged. - Labs CBC & Chem 7: 12/07/17 10:15 12/04/17 17:35 Labs: Abnormal Lab Results - Last 24 Hours (Table) 12/07/17 Range/Units 10:15 Hgb 12.1 L (13.0-17.5) gm/dL MCHC 30.9 L (31.0-37.0) g/dL Microbiology - Last 24 Hours (Table) 12/04/17 17:35 Blood Culture - Preliminary Blood No Growth after 48 hours Assessment and Plan Assessment: 1. Acute left leg DVT, present on admission 2. Acute left leg cellulitis and right hip pressure ulcers stage II 3. History of previous left leg DVT 4. Status post previous IVC filter placement 5. Close head injury history Plan: Continue on current medication regime ,monitoring and symptomatic treatment. Wound care, antibiotics as per infectious disease. Significant other at bedside, updated on plan a care including discharge planning in progress for tomorrow to [facility]. The impression and plan of care has been dictated as directed. : I performed a history and examination of this patient, discussed the same with the dictator. I agree with the dictator's note ,documented as a scribe. Any additional findings or plans will be noted.
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
[2017-12-08] MEDS: ceFAZolin IN SWFI 2 GM/20 ML SYRINGE IVP SCH ×3 (00:31→15:25)
[2017-12-08] MEDS: SODIUM CHLORIDE 0.9% 1,000 ML IV SCH ×2 (03:09→15:24)
--- NOTE | 2017-12-08 04:18 | PN ---
PROGRESS NOTE DATE OF SERVICE: 12/07/2017. REASON FOR FOLLOWUP: Left leg cellulitis and right hip wound. INTERVAL HISTORY: The patient is afebrile. The patient remained to be pleasantly confused and unable to provide any history. No chest pain, shortness of breath or cough reported. No abdominal pain and no diarrhea. EXAMINATION: Blood pressure is 130/69 with a pulse of 74, temperature 99.1. He is 94% on room air. General description is an elderly male lying in bed in no distress. RESPIRATORY SYSTEM: Unlabored breathing. Clear to auscultation. HEART: S1, S2. Regular rate and rhythm. ABDOMEN: Soft, no tenderness. Left leg redness slightly decreased. LABS: Hemoglobin is 12.1, white count 4.4. DIAGNOSTIC IMPRESSION AND PLAN: 1. Patient left leg rash and question of cellulitis. Continue with Mycolog cream and short course of Cefazolin. 2. Right hip wound stage II pressure ulcer. Local care with Aquacel Silver dressing. Keep the area off the pressure. MMODL / IJN: [id number] /
[2017-12-08] MEDS: ENOXAPARIN 80 MG/0.8 ML SYRINGE SQ SCH (07:58)
[2017-12-08] MEDS: TRIAMCINOLONE 0.1% CREAM 80 GM TUBE TOPICAL SCH (08:02)
[2017-12-08] MEDS: NYSTATIN 100,000UNIT/GM CREAM 30 GM TUBE TOPICAL SCH (08:03)
[2017-12-08] MEDS: PANTOPRAZOLE 40 MG/10 ML VIAL IVP SCH (08:40)
[2017-12-08 08:46] LABS: Basophils % (A) 0 %; Eosinophils # (A) 0.1 k/uL (0-0.7); Eosinophils % (A) 2 %; HCT 38.1 % (39.0-53.0); HGB 12.2 gm/dL (13.0-17.5); Lymphocytes # (A) 2.1 k/uL (1.0-4.8); Lymphocytes % (A) 36 %; MCH 27.3 pg (25.0-35.0); MCV 85.2 fL (80.0-100.0); Mean Platelet Volume 6.4; Monocytes # (A) 0.4 k/uL (0-1.0); Monocytes % (A) 7 %; Neutrophils % (A) 53 %; Platelet Count 353 k/uL (150-450); RBC 4.47 m/uL (4.30-5.90); RDW 15.2 % (11.5-15.5); WBC 5.7 k/uL (3.8-10.6)
--- NOTE | 2017-12-08 14:40 | P.DS ---
Providers Date of admission: 12/04/17 18:10 Expected date of discharge: 12/08/17 Attending physician: Laura Rosenberg Consults: 12/04/17 17:56 Consult Physician Urgent Consulting Provider: Ju Garcia Consult Reason/Comments: left lower extremity cellulitis Do you want consulting provider notified?: Yes 12/04/17 17:57 Consult Physician Urgent Consulting Provider: Jordan Connors Consult Reason/Comments: acute DVT Do you want consulting provider notified?: Yes Primary care physician: Physician Nonstaff Hospital Course: Final Diagnoses: Hospital course:This a 72-year-old gentleman admitted with acute DVT of left leg , acute left leg cellulitis, right hip pressure ulcer and multiple other medical issues. Evaluated by speech therapy, aspiration precautions, thin liquids with no straws recommended. Evaluated by infectious disease and hematology. Anticoagulation as per hematology. Maintained on IV antibiotics/ Wound Care. Significant clinical improvement. Patient cleared for discharge by both consults. Patient is being discharged to to [facility] subacute rehab. In a stable condition with guarded prognosis. EXAM: GENERAL: Sitting up in bed, alert, nonverbal, no acute distress CARDIOVASCULAR: S1, S2 muffled. No murmur RESPIRATION: Breath sounds diminished in the bases. Occasional scattered rhonchi,no crackles. ABDOMEN: Soft, nontender. Bowel sounds heard. LEGS: Bilateral leg edema, left greater than right with left leg cellulitis, right gluteal area pressure ulcer; wounds dry without drainage NERVOUS SYSTEM: Unable to fully evaluate, sensorium unchanged. The impression and plan of care has been dictated as directed. : I performed a history and examination of this patient, discussed the same with the dictator. I agree with the dictator's note ,documented as a scribe. Any additional findings or plans will be noted. Time taken: 35 minutes Patient Condition at Discharge: Stable Plan - Discharge Summary New Discharge Prescriptions: New Apixaban [Eliquis] 5 mg PO BID #60 tab Acetaminophen Tab [Tylenol] 650 mg PO Q6HR PRN tab PRN Reason: Mild Pain Or Fever > 100.5 Nystatin 100,000Unit/gm Cream [Mycostatin Cream] 1 applic TOPICAL BID applic Pantoprazole [Protonix] 40 mg PO DAILY tablet. Triamcinolone 0.1% Cream [Kenalog] 1 applic TOPICAL BID applic Continue Multivitamins, Thera [Multivitamin (formulary)] 1 tab PO DAILY Discontinued Heparin Sodium,Porcine [Heparin Sodium] 5,000 unit SQ Q12HR #1 vial Discharge Medication List Multivitamins, Thera [Multivitamin (formulary)] 1 tab PO DAILY 11/07/17 [History ] Acetaminophen Tab [Tylenol] 650 mg PO Q6HR PRN tab 12/08/17 [Rx] Apixaban [Eliquis] 5 mg PO BID #60 tab 12/08/17 [Rx] Nystatin 100,000Unit/gm Cream [Mycostatin Cream] 1 applic TOPICAL BID applic [Rx] Pantoprazole [Protonix] 40 mg PO DAILY tablet. 12/08/17 [Rx] Triamcinolone 0.1% Cream [Kenalog] 1 applic TOPICAL BID applic 12/08/17 [Rx] Follow up Appointment(s)/Referral(s): Nonstaff,Physician [Primary Care Provider] - 1-2 days Julien Jeffers MD [STAFF PHYSICIAN] - 6 Weeks (make appointment for 10-12 weeks from now ) Nicola Venegas MD [REFERRING] - 3 Days Patient Instructions/Handouts: Cellulitis (DC), Deep Venous Thrombosis (DC) Activity/Diet/Wound Care/Special Instructions: [facility] Antibiotics/Wound Care as per ID Diet: A one-to-one supervision, aspiration precautions, no straws
[2017-12-08 15:39] VITALS: BP 142/66; PULSE 63; TEMP 98.6
--- NOTE | 2017-12-08 16:49 | PN ---
PROGRESS NOTE DATE OF SERVICE: 12/08/2017 REASON FOR FOLLOWUP: 1. Left leg cellulitis. 2. Right hip wound. INTERVAL HISTORY: The patient is currently afebrile. He seems to be more awake and alert, breathing comfortably. No nausea or vomiting has been noticed or any diarrhea. PHYSICAL EXAMINATION: Blood pressure is 142/66, pulse of 63, temperature 98.6. He is 96% on room air. General description is an elderly male lying in bed in no distress. RESPIRATORY SYSTEM: Unlabored breathing. Clear to auscultation anteriorly. HEART: S1, S2. Regular rate and rhythm. ABDOMEN: Soft. No tenderness. Left leg swelling and redness slightly decreased. LAB: Hemoglobin 12.2, white count 5.7. DIAGNOSTIC IMPRESSION AND PLAN: 1. Patient with left leg cellulitis. To finish therapy with oral Keflex 500 mg t.i.d. for about a week. 2. Patient with a right hip wound pressure ulcer, stage II. Local care with Aquacel Silver dressing. Keep the area off the pressure. MMODL / IJN: [id number] /
[2017-12-08] MEDS ORDERED: APIXABAN 5 MG TAB PO SCH (21:00)
[2017-12-09] MEDS ORDERED: ENOXAPARIN 120 MG/0.8 ML SYRINGE SQ SCH (09:00)
[2017-12-09] MEDS ORDERED: PANTOPRAZOLE 40 MG TABLET PO SCH (09:00)
== END 2017-12-08 18:40 | DRG 300 ==
LOC: EC 16:48 → 4MS4W 18:10
PROVIDERS: ADMIT Hospitalist; ATTEND Hospitalist
DX: I82.402 Acute embolism and thrombosis of unspecified deep veins of left lower extremity (principal); L03.116 Cellulitis of left lower limb; L97.929 Non-pressure chronic ulcer of unspecified part of left lower leg with unspecified severity; L89.212 Pressure ulcer of right hip, stage 2; M24.532 Contracture, left wrist; Z87.820 Personal history of traumatic brain injury; Z74.01 Bed confinement status; Z86.718 Personal history of other venous thrombosis and embolism; Z66 Do not resuscitate; F32.9 Major depressive disorder, single episode, unspecified; Z79.899 Other long term (current) drug therapy; Z95.828 Presence of other vascular implants and grafts
CPT/HCPCS: 36415; 80053; 85025; 85610; 85730; 87040; 96365; 96366; 96368; 96376; 99285

== ENCOUNTER 2021-12-03 23:20 | Inpatient (IN) | payer BC, MEDICARE ==
[2021-12-03] MEDS ORDERED: SODIUM CHLORIDE 0.9% 1,000 ML IV STA (23:36)
--- NOTE | 2021-12-04 00:07 | ED ---
SOB HPI - General Chief Complaint: Shortness of Breath Stated Complaint: Sepsis Time Seen by Provider: 12/03/21 23:28 Source: EMS, RN notes reviewed, old records reviewed Mode of arrival: EMS Limitations: no limitations - History of Present Illness Initial Comments: This is a 76-year-old male to the emergency department for evaluation patient presents today for evaluation regards to severe weakness. Patient sent us today for difficulty breathing at all and poor pulse ox patient poor historian history obtained from EMS and patient's chart MD Complaint: shortness of breath -: days(s) Severity: moderate Severity scale (1-10): 4 Consistency: constant Improves With: nothing Worsens With: nothing Known History Of: COPD, congestive heart failure Context: recent URI Associated Symptoms: sputum production, parasthesias, nausea/vomiting Treatments Prior to Arrival: none - Related Data Home Medications Medication Instructions Recorded Confirmed Multivitamins, Thera [Multivitamin 1 tab PO DAILY 11/07/17 12/04/21 (formulary)] Allergies Allergy/AdvReac Type Severity Reaction Status Date / Time No Known Allergies Allergy Verified 12/04/21 08:25 Review of Systems ROS Statement: Those systems with pertinent positive or pertinent negative responses have been documented in the HPI. ROS Other: All systems not noted in ROS Statement are negative. Past Medical History Past Medical History: Deep Vein Thrombosis (DVT) Additional Past Medical History / Comment(s): closed head injury, contracture left wrist hand, and Left leg, edema lower legs History of Any Multi-Drug Resistant Organisms: None Reported Past Surgical History: Appendectomy Additional Past Surgical History / Comment(s): antonio filter, left leg tendon surgery Past Anesthesia/Blood Transfusion Reactions: No Reported Reaction Past Psychological History: Depression Past Alcohol Use History: None Reported Past Drug Use History: None Reported - Past Family History Father History Unknown: Yes Additional Family Medical History / Comment(s): adopted only child no history available General Exam Limitations: no limitations General appearance: alert, in no apparent distress Head exam: Present: atraumatic, normocephalic, normal inspection Eye exam: Present: normal appearance, PERRL, EOMI. Absent: scleral icterus, conjunctival injection, periorbital swelling ENT exam: Present: normal exam, mucous membranes moist Neck exam: Present: normal inspection. Absent: tenderness, meningismus, lymphadenopathy Respiratory exam: Present: normal lung sounds bilaterally. Absent: respiratory distress, wheezes, rales, rhonchi, stridor Cardiovascular Exam: Present: normal rhythm, tachycardia, normal heart sounds. Absent: systolic murmur, diastolic murmur, rubs, gallop, clicks GI/Abdominal exam: Present: soft, normal bowel sounds. Absent: distended, tenderness, guarding, rebound, rigid Extremities exam: Present: normal inspection, full ROM, normal capillary refill. Absent: tenderness, pedal edema, joint swelling, calf tenderness Back exam: Present: normal inspection Neurological exam: Present: alert, oriented X3, CN II-XII intact Psychiatric exam: Present: normal affect, normal mood Skin exam: Present: warm, dry, intact, normal color. Absent: rash Course Vital Signs 12/03/21 12/04/21 12/04/21 23:28 00:42 02:24 Temperature 98.9 F 98.9 F Pulse Rate 106 H 92 89 Respiratory 23 24 Rate Blood Pressure 111/67 103/62 O2 Sat by Pulse 94 L 97 96 Oximetry 12/04/21 04:46 Temperature Pulse Rate 86 Respiratory 18 Rate Blood Pressure 106/71 O2 Sat by Pulse 92 L Oximetry - Reevaluation(s) Reevaluation #1: 12/04/21 Medical record is reviewed Reevaluation #2: 12/04/21 Patient informed of results and questions answered Reevaluation #3: 12/04/21 Patient is no change in symptoms here in the ER - Consultations Consultation #1: Spoke with admitting physicians regarding admission there agreeable Medical Decision Making - Medical Decision Making 76 male to the emergency department for evaluation. Patient is acutely ill with acute renal failure and significant hypernatremia elevated sodium level. Be admitted for further evaluation management - Lab Data Result diagrams: 12/11/21 05:47 12/11/21 05:47 Lab Results 12/04/21 12/04/21 12/04/21 Range/Units 00:06 00:06 00:06 WBC 4.3 (3.8-10.6) k/uL RBC 5.39 (4.30-5.90) m/uL Hgb 14.2 (13.0-17.5) gm/dL Hct 47.8 (39.0-53.0) % MCV 88.7 (80.0-100.0) fL MCH 26.3 (25.0-35.0) pg MCHC 29.6 L (31.0-37.0) g/dL RDW 14.4 (11.5-15.5) % Plt Count 396 (150-450) k/uL MPV 8.1 Neutrophils % (Manual) 40 % Band Neuts % (Manual) 30 % Lymphocytes % (Manual) 27 % Monocytes % (Manual) 4 % Neutrophils # (Manual) 3.00 (1.3-7.7) k/uL Lymphocytes # (Manual) 1.16 (1.0-4.8) k/uL Monocytes # (Manual) 0.17 (0-1.0) k/uL Nucleated RBCs 0 (0-0) /100 WBC Manual Slide Review Performed Large Platelets Present Hypochromasia Marked Poikilocytosis (manual Present Anisocytosis (manual) Present PT 11.4 (9.0-12.0) sec INR 1.1 (<1.2) APTT 22.1 (22.0-30.0) sec Sodium 159 H (137-145) mmol/L Potassium 3.7 (3.5-5.1) mmol/L Chloride 122 H (98-107) mmol/L Carbon Dioxide 28 (22-30) mmol/L Anion Gap 9 mmol/L BUN 88 H (9-20) mg/dL Creatinine 2.43 H (0.66-1.25) mg/dL Est GFR (CKD-EPI)AfAm 29 (>60 ml/min/1.73 sqM) Est GFR (CKD-EPI)NonAf 25 (>60 ml/min/1.73 sqM) Glucose 143 H (74-99) mg/dL Lactic Ac Sepsis Rflx Plasma Lactic Acid Jean (0.7-2.0) mmol/L Calcium 9.2 (8.4-10.2) mg/dL Phosphorus 3.1 (2.5-4.5) mg/dL Magnesium 2.5 H (1.6-2.3) mg/dL Total Bilirubin 0.4 (0.2-1.3) mg/dL AST 44 (17-59) U/L ALT 30 (4-49) U/L Alkaline Phosphatase 144 H (38-126) U/L Troponin I (0.000-0.034) ng/mL NT-Pro-B Natriuret Pep pg/mL Total Protein 7.4 (6.3-8.2) g/dL Albumin 3.3 L (3.5-5.0) g/dL Urine Color Urine Appearance (Clear) Urine pH (5.0-8.0) Ur Specific [place] (1.001-1.035) Urine Protein (Negative) Urine Glucose (UA) (Negative) Urine Ketones (Negative) Urine Blood (Negative) Urine Nitrite (Negative) Urine Bilirubin (Negative) Urine Urobilinogen (<2.0) mg/dL Ur Leukocyte Esterase (Negative) Urine RBC (0-5) /hpf Urine WBC (0-5) /hpf Ur Squamous Epith Cells (0-4) /hpf Urine Bacteria (None) /hpf Hyaline Casts (0-2) /lpf Urine Mucus (None) /hpf 12/04/21 12/04/21 12/04/21 Range/Units 00:06 00:06 00:06 WBC (3.8-10.6) k/uL RBC (4.30-5.90) m/uL Hgb (13.0-17.5) gm/dL Hct (39.0-53.0) % MCV (80.0-100.0) fL MCH (25.0-35.0) pg MCHC (31.0-37.0) g/dL RDW (11.5-15.5) % Plt Count (150-450) k/uL MPV Neutrophils % (Manual) % Band Neuts % (Manual) % Lymphocytes % (Manual) % Monocytes % (Manual) % Neutrophils # (Manual) (1.3-7.7) k/uL Lymphocytes # (Manual) (1.0-4.8) k/uL Monocytes # (Manual) (0-1.0) k/uL Nucleated RBCs (0-0) /100 WBC Manual Slide Review Large Platelets Hypochromasia Poikilocytosis (manual Anisocytosis (manual) PT (9.0-12.0) sec INR (<1.2) APTT (22.0-30.0) sec Sodium (137-145) mmol/L Potassium (3.5-5.1) mmol/L Chloride (98-107) mmol/L Carbon Dioxide (22-30) mmol/L Anion Gap mmol/L BUN (9-20) mg/dL Creatinine (0.66-1.25) mg/dL Est GFR (CKD-EPI)AfAm (>60 ml/min/1.73 sqM) Est GFR (CKD-EPI)NonAf (>60 ml/min/1.73 sqM) Glucose (74-99) mg/dL Lactic Ac Sepsis Rflx Plasma Lactic Acid Jean 2.3 H* (0.7-2.0) mmol/L Calcium (8.4-10.2) mg/dL Phosphorus (2.5-4.5) mg/dL Magnesium (1.6-2.3) mg/dL Total Bilirubin (0.2-1.3) mg/dL AST (17-59) U/L ALT (4-49) U/L Alkaline Phosphatase (38-126) U/L Troponin I 0.019 (0.000-0.034) ng/mL NT-Pro-B Natriuret Pep 928 pg/mL Total Protein (6.3-8.2) g/dL Albumin (3.5-5.0) g/dL Urine Color Urine Appearance (Clear) Urine pH (5.0-8.0) Ur Specific [place] (1.001-1.035) Urine Protein (Negative) Urine Glucose (UA) (Negative) Urine Ketones (Negative) Urine Blood (Negative) Urine Nitrite (Negative) Urine Bilirubin (Negative) Urine Urobilinogen (<2.0) mg/dL Ur Leukocyte Esterase (Negative) Urine RBC (0-5) /hpf Urine WBC (0-5) /hpf Ur Squamous Epith Cells (0-4) /hpf Urine Bacteria (None) /hpf Hyaline Casts (0-2) /lpf Urine Mucus (None) /hpf 12/04/21 12/04/21 Range/Units 00:54 02:57 WBC (3.8-10.6) k/uL RBC (4.30-5.90) m/uL Hgb (13.0-17.5) gm/dL Hct (39.0-53.0) % MCV (80.0-100.0) fL MCH (25.0-35.0) pg MCHC (31.0-37.0) g/dL RDW (11.5-15.5) % Plt Count (150-450) k/uL MPV Neutrophils % (Manual) % Band Neuts % (Manual) % Lymphocytes % (Manual) % Monocytes % (Manual) % Neutrophils # (Manual) (1.3-7.7) k/uL Lymphocytes # (Manual) (1.0-4.8) k/uL Monocytes # (Manual) (0-1.0) k/uL Nucleated RBCs (0-0) /100 WBC Manual Slide Review Large Platelets Hypochromasia Poikilocytosis (manual Anisocytosis (manual) PT (9.0-12.0) sec INR (<1.2) APTT (22.0-30.0) sec Sodium (137-145) mmol/L Potassium (3.5-5.1) mmol/L Chloride (98-107) mmol/L Carbon Dioxide (22-30) mmol/L Anion Gap mmol/L BUN (9-20) mg/dL Creatinine (0.66-1.25) mg/dL Est GFR (CKD-EPI)AfAm (>60 ml/min/1.73 sqM) Est GFR (CKD-EPI)NonAf (>60 ml/min/1.73 sqM) Glucose (74-99) mg/dL Lactic Ac Sepsis Rflx Y Plasma Lactic Acid Jean (0.7-2.0) mmol/L Calcium (8.4-10.2) mg/dL Phosphorus (2.5-4.5) mg/dL Magnesium (1.6-2.3) mg/dL Total Bilirubin (0.2-1.3) mg/dL AST (17-59) U/L ALT (4-49) U/L Alkaline Phosphatase (38-126) U/L Troponin I (0.000-0.034) ng/mL NT-Pro-B Natriuret Pep pg/mL Total Protein (6.3-8.2) g/dL Albumin (3.5-5.0) g/dL Urine Color Yellow Urine Appearance Cloudy (Clear) Urine pH 5.0 (5.0-8.0) Ur Specific [place] 1.019 (1.001-1.035) Urine Protein Trace H (Negative) Urine Glucose (UA) Negative (Negative) Urine Ketones Negative (Negative) Urine Blood Negative (Negative) Urine Nitrite Negative (Negative) Urine Bilirubin Negative (Negative) Urine Urobilinogen <2.0 (<2.0) mg/dL Ur Leukocyte Esterase Negative (Negative) Urine RBC 2 (0-5) /hpf Urine WBC 1 (0-5) /hpf Ur Squamous Epith Cells <1 (0-4) /hpf Urine Bacteria Rare H (None) /hpf Hyaline Casts 34 H (0-2) /lpf Urine Mucus Rare H (None) /hpf - EKG Data -: EKG Interpreted by Me (EKG EKG is sinus rhythm 89 MD 167 QRS 90 QTC 345) - Radiology Data Radiology results: report reviewed (Chest x-rays bilateral pulmonary infiltrate), image reviewed Critical Care Time Critical Care Time: Yes Total Critical Care Time: 31 Disposition Clinical Impression: Hypernatremia, Acute renal failure, Congestive heart failure, Acute pulmonary edema Disposition: ADMITTED IP TO THIS HOSP Condition: Fair Is patient prescribed a controlled substance at d/c from ED?: No
--- NOTE | 2021-12-04 00:25 | XR ---
EXAM: XR Chest, 1 View CLINICAL HISTORY: ITS.REASON XR Reason: cp TECHNIQUE: Frontal view of the chest. COMPARISON: Comparison made to prior chest x-ray from November 07, 2017. FINDINGS: Lungs: There is a large patchy opacity in the left lower lobe and small patchy opacity at the right cardiophrenic angle. Pleural space: There is blunting of left costophrenic angle. No pneumothorax. Heart: Unremarkable. No cardiomegaly. Mediastinum: Unremarkable. Bones/joints: Unremarkable. IMPRESSION: Findings concerning for bilateral pulmonary infiltrates, left greater than right.
[2021-12-04 00:32] LABS: HCT 47.8 % (39.0-53.0); HGB 14.2 gm/dL (13.0-17.5); Hypochromasia Marked; MCH 26.3 pg (25.0-35.0); MCHC 29.6 g/dL (31.0-37.0); MCV 88.7 fL (80.0-100.0); Mean Platelet Volume 8.1; Platelet Count 396 k/uL (150-450); RBC 5.39 m/uL (4.30-5.90); RDW 14.4 % (11.5-15.5); WBC 4.3 k/uL (3.8-10.6)
[2021-12-04 00:35] LABS: Albumin 3.3 g/dL (3.5-5.0); Calcium 9.2 mg/dL (8.4-10.2); Magnesium 2.5 mg/dL (1.6-2.3); Phosphorus 3.1 mg/dL (2.5-4.5); Potassium 3.7 mmol/L (3.5-5.1); Total Bilirubin 0.4 mg/dL (0.2-1.3); Total Protein 7.4 g/dL (6.3-8.2)
[2021-12-04 00:38] LABS: INR 1.1 (<1.2); Partial Thromboplastin Time 22.1 sec (22.0-30.0); Prothrombin Time 11.4 sec (9.0-12.0)
[2021-12-04 02:39] LABS: Band Neutrophils % 30 %; Lymphocytes # (M) 1.16 k/uL (1.0-4.8); Monocytes # (M) 0.17 k/uL (0-1.0); Neutrophils % (M) 40 %; Nucleated Red Blood Cells 0 /100 WBC (0-0); Total Cells Counted 200
[2021-12-04 02:40] LABS: Large Platelets Present
[2021-12-04 02:41] LABS: Anisocytosis (M) Present; Poikilocytosis (M) Present
[2021-12-04] MEDS ORDERED: NALOXONE 0.4 MG/ML 1 ML VIAL IV PRN (03:03)
[2021-12-04] MEDS ORDERED: MORPHINE SULFATE 4 MG/ML SYRINGE IV PRN (03:03)
[2021-12-04] MEDS ORDERED: LACTATED RINGERS 1,000 ML IV ONE (03:03)
[2021-12-04] MEDS ORDERED: ONDANSETRON 4 MG/2 ML VIAL IVP PRN (03:03)
[2021-12-04] MEDS ORDERED: LORazepam 2 MG/ML INJ IV PRN (03:03)
[2021-12-04] MEDS ORDERED: AZITHROMYCIN 500 MG in SODIUM CHLORIDE 0.9% 250 ML IVPB ONE (03:28)
[2021-12-04 03:56] LABS: Appearance,Urine Cloudy (Clear); Bacteria,Urine Rare /hpf; Bilirubin,Urine Negative (Negative); Blood,Urine Negative (Negative); Color,Urine Yellow; Glucose,Urine (UA) Negative (Negative); Hyaline Casts,Urine 34 /lpf (0-2); Ketones,Urine Negative (Negative); Leukocyte Esterase,Urine Negative (Negative); Mucus,Urine Rare /hpf; Nitrite,Urine Negative (Negative); Protein,Urine Trace (Negative); RBC,Urine 2 /hpf (0-5); Specific Gravity,Urine 1.019 (1.001-1.035); Squamous Epithelial Cell,Urine <1 /hpf (0-4); Urobilinogen,Urine <2.0 mg/dL (<2.0); WBC,Urine 1 /hpf (0-5)
[2021-12-04] MEDS ORDERED: VANCOMYCIN IV PER PHARMACY 1 EACH MISC MISCELLANE PRN (05:26)
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
[2021-12-04] MEDS ORDERED: VANCOMYCIN 1,000 MG in SODIUM CHLORIDE 0.9% 250 ML IVPB ONE (07:00)
[2021-12-04 08:20] LABS: Anion Gap 15 mmol/L; Blood Urea Nitrogen 91 mg/dL (9-20); Calcium 8.8 mg/dL (8.4-10.2); Carbon Dioxide 18 mmol/L (22-30); Chloride 128 mmol/L (98-107); Glucose 160 mg/dL (74-99); Magnesium 2.4 mg/dL (1.6-2.3); Potassium 3.8 mmol/L (3.5-5.1)
[2021-12-04 08:26] LABS: African American GFR (CKD) 33 (>60 ml/min/1.73 sqM); Non-African American GFR(CKD) 28 (>60 ml/min/1.73 sqM)
[2021-12-04 08:32] LABS: Sodium 161 mmol/L (137-145)
[2021-12-04] MEDS: HEPARIN SODIUM,PORCINE/PF 5,000 UNIT/0.5 ML SYRINGE SQ SCH ×3 (08:53→22:37)
[2021-12-04] MEDS: MULTIVITAMINS, THERA 1 EACH TAB PO SCH (08:54)
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
[2021-12-04] MEDS ORDERED: SODIUM BICARB 8.4% 50 ML SYR (1 MEQ/ML) IV STA (11:10)
[2021-12-04] MEDS ORDERED: DEXTROSE 5% IN WATER 1,000 ML IV SCH (11:15)
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
[2021-12-04] MEDS ORDERED: LORazepam 0.5 MG TAB PO PRN (12:06)
[2021-12-04 13:23] VITALS: BMI 20.7
--- NOTE | 2021-12-04 13:26 | US ---
EXAMINATION TYPE: US kidneys/renal and bladder DATE OF EXAM: 12/04/2021 COMPARISON: NONE CLINICAL HISTORY: carlitos. Abnormal Labs EXAM MEASUREMENTS: Right Kidney: 9.5 x 5.6 x 5.2 cm Left Kidney: Not Imaged Right Kidney: Hydronephrosis seen . No nephrolithiasis. Left Kidney: None vis due to patient's inability to turn, contorted in the position on left Bladder: wnl Bilateral Jets seen: No IMPRESSION: There is moderate right-sided hydronephrosis.
[2021-12-04] MEDS ORDERED: SODIUM CHLORIDE 0.9% 1,000 ML IV SCH (17:30)
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
[2021-12-04 19:55] LABS: African American GFR (CKD) 35 (>60 ml/min/1.73 sqM); Anion Gap 8 mmol/L; Blood Urea Nitrogen 95 mg/dL (9-20); Calcium 8.7 mg/dL (8.4-10.2); Carbon Dioxide 29 mmol/L (22-30); Chloride 124 mmol/L (98-107); Glucose 137 mg/dL (74-99); Non-African American GFR(CKD) 30 (>60 ml/min/1.73 sqM); Potassium 3.4 mmol/L (3.5-5.1)
[2021-12-04 19:59] LABS: Sodium 161 mmol/L (137-145)
[2021-12-04] MEDS ORDERED: POTASSIUM CHLORIDE ER 20 MEQ TAB.ER PO STA (20:24)
[2021-12-04] MEDS: DEXTROSE 5% IN WATER 1,000 ML IV SCH (22:38)
[2021-12-05] MEDS: DEXTROSE 5% IN WATER 1,000 ML IV SCH ×2 (05:23→10:27)
[2021-12-05] MEDS: AZITHROMYCIN 500 MG in SODIUM CHLORIDE 0.9% 250 ML IVPB SCH (05:59)
[2021-12-05 07:55] LABS: ALT 23 U/L (4-49); AST 30 U/L (17-59); African American GFR (CKD) 41 (>60 ml/min/1.73 sqM); Albumin 2.6 g/dL (3.5-5.0); Albumin/Globulin Ratio 0.7; Alkaline Phosphatase 131 U/L (38-126); Anion Gap 9 mmol/L; Blood Urea Nitrogen 89 mg/dL (9-20); Calcium 8.6 mg/dL (8.4-10.2); Carbon Dioxide 26 mmol/L (22-30); Chloride 125 mmol/L (98-107); Globulin 3.5 g/dL; Glucose 116 mg/dL (74-99); Magnesium 2.6 mg/dL (1.6-2.3); Non-African American GFR(CKD) 35 (>60 ml/min/1.73 sqM); Potassium 3.4 mmol/L (3.5-5.1); Sodium 160 mmol/L (137-145); Total Bilirubin 0.3 mg/dL (0.2-1.3); Total Protein 6.1 g/dL (6.3-8.2)
[2021-12-05] MEDS ORDERED: POTASSIUM CHLORIDE ER 20 MEQ TAB.ER PO STA (08:57)
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
[2021-12-05 09:32] LABS: Basophils # (A) 0.02 X 10*3/uL (0.00-0.10); Basophils % (A) 0.3 %; Eosinophils # (A) 0.05 X 10*3/uL (0.04-0.35); Eosinophils % (A) 0.7 %; HCT 36.5 % (39.6-50.0); HGB 10.2 g/dL (13.0-17.0); Immature Grans, Automated 0.1 %; Lymphocytes # (A) 1.64 X 10*3/uL (0.90-5.00); Lymphocytes % (A) 24.2 %; MCH 24.5 pg (27.0-32.0); MCHC 27.9 g/dL (32.0-37.0); MCV 87.7 fL (80.0-97.0); Mean Platelet Volume 11.1 fL (9.5-12.2); Monocytes # (A) 0.81 X 10*3/uL (0.20-1.00); NRBC Per 100 WBC 0 /100 WBCS (0.0-0.0); Neutrophils # (A) 4.24 X 10*3/uL (1.80-7.70); Neutrophils % (A) 62.7 %; Platelet Count 292 X 10*3/uL (140-440); RBC 4.16 X 10*6/uL (4.40-5.60); WBC 6.77 X 10*3/uL (4.50-10.00)
[2021-12-05 09:50] LABS: INR 1.1 (0.90-1.11); Prothrombin Time 12.4 sec (9.9-11.9)
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
[2021-12-05] MEDS: VANCOMYCIN 1,250 MG in SODIUM CHLORIDE 0.9% 250 ML IVPB SCH (10:22)
[2021-12-05] MEDS: MULTIVITAMINS, THERA 1 EACH TAB PO SCH (10:22)
[2021-12-05] MEDS: HEPARIN SODIUM,PORCINE/PF 5,000 UNIT/0.5 ML SYRINGE SQ SCH ×2 (10:23→16:58)
--- NOTE | 2021-12-05 11:54 | P.PN ---
Progress Note - Text Progress Note Date: 12/05/21 The patient is able to open his eyes, but is currently non-verbal. No information was able to be obtained. Spoke to the patient's , Stefania, via telephone. 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 Raisa Cedeno [facility] Palliative Care [facility] [id number] Email: [email or web address]
[2021-12-05 18:21] LABS: African American GFR (CKD) 57 (>60 ml/min/1.73 sqM); Anion Gap 5 mmol/L; Blood Urea Nitrogen 79 mg/dL (9-20); Calcium 8.4 mg/dL (8.4-10.2); Carbon Dioxide 27 mmol/L (22-30); Chloride 123 mmol/L (98-107); Glucose 135 mg/dL (74-99); Non-African American GFR(CKD) 49 (>60 ml/min/1.73 sqM); Sodium 155 mmol/L (137-145)
[2021-12-06] MEDS: HEPARIN SODIUM,PORCINE/PF 5,000 UNIT/0.5 ML SYRINGE SQ SCH ×3 (03:11→16:29)
[2021-12-06] MEDS: DEXTROSE 5% IN WATER 1,000 ML IV SCH ×4 (05:21→15:11)
[2021-12-06] MEDS ORDERED: VANCOMYCIN 1,250 MG in SODIUM CHLORIDE 0.9% 250 ML IVPB SCH (06:00)
[2021-12-06] MEDS: AZITHROMYCIN 500 MG in SODIUM CHLORIDE 0.9% 250 ML IVPB SCH (07:32)
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
[2021-12-06] MEDS: MULTIVITAMINS, THERA 1 EACH TAB PO SCH (09:16)
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
[2021-12-06] MEDS: VANCOMYCIN 1,250 MG in SODIUM CHLORIDE 0.9% 250 ML IVPB SCH (10:00)
[2021-12-06 10:38] LABS: HCT 34.8 % (39.6-50.0); HGB 10.1 g/dL (13.0-17.0); MCH 25.4 pg (27.0-32.0); MCV 87.4 fL (80.0-97.0); Mean Platelet Volume 10.9 fL (9.5-12.2); NRBC Per 100 WBC 0 /100 WBCS (0.0-0.0); Platelet Count 276 X 10*3/uL (140-440); RBC 3.98 X 10*6/uL (4.40-5.60); RDW 14.9 % (11.5-14.5); WBC 6.79 X 10*3/uL (4.50-10.00)
[2021-12-06 10:54] LABS: African American GFR (CKD) 61.9 (60.0-200.0); Albumin 2.7 g/dL (3.8-4.9); Albumin/Globulin Ratio 0.77 (1.60-3.17); Anion Gap 9.4 mmol/L (10.00-18.00); BUN/Creat Ratio 39.31 Ratio (12.00-20.00); Blood Urea Nitrogen 51.1 mg/dL (9.0-27.0); Calcium 8.7 mg/dL (8.7-10.3); Carbon Dioxide 24.6 mmol/L (20.0-27.5); Globulin 3.5 g/dL (1.6-3.3); Magnesium 2.5 mg/dL (1.5-2.4); Non-African American GFR(CKD) 53.4 (60.0-200.0); Potassium 3.6 mmol/L (3.5-5.5); Total Bilirubin 0.3 mg/dL (0.30-1.20); Total Protein 6.2 g/dL (6.2-8.2)
[2021-12-06] MEDS ORDERED: POTASSIUM CHLORIDE ER 20 MEQ TAB.ER PO STA (13:21)
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
[2021-12-06 18:34] LABS: African American GFR (CKD) 80 (>60 ml/min/1.73 sqM); Anion Gap 5 mmol/L; Blood Urea Nitrogen 49 mg/dL (9-20); Calcium 8.3 mg/dL (8.4-10.2); Carbon Dioxide 26 mmol/L (22-30); Chloride 119 mmol/L (98-107); Glucose 135 mg/dL (74-99); Non-African American GFR(CKD) 70 (>60 ml/min/1.73 sqM); Potassium 3.8 mmol/L (3.5-5.1); Sodium 150 mmol/L (137-145)
[2021-12-07] MEDS: HEPARIN SODIUM,PORCINE/PF 5,000 UNIT/0.5 ML SYRINGE SQ SCH ×4 (00:09→23:55)
[2021-12-07] MEDS: DEXTROSE 5% IN WATER 1,000 ML IV SCH ×3 (00:09→23:56)
[2021-12-07] MEDS ORDERED: VANCOMYCIN TROUGH DUE 1 EACH MISC MISCELLANE ONE (08:00)
[2021-12-07 08:56] LABS: African American GFR (CKD) 80 (>60 ml/min/1.73 sqM); Anion Gap 4 mmol/L; Blood Urea Nitrogen 32 mg/dL (9-20); Calcium 8.4 mg/dL (8.4-10.2); Carbon Dioxide 27 mmol/L (22-30); Chloride 118 mmol/L (98-107); Glucose 110 mg/dL (74-99); Non-African American GFR(CKD) 70 (>60 ml/min/1.73 sqM); Potassium 3.5 mmol/L (3.5-5.1); Sodium 149 mmol/L (137-145)
[2021-12-07] MEDS: MULTIVITAMINS, THERA 1 EACH TAB PO SCH (09:32)
[2021-12-07] MEDS: VANCOMYCIN 1,250 MG in SODIUM CHLORIDE 0.9% 250 ML IVPB SCH (09:32)
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
[2021-12-08] MEDS: DEXTROSE 5% IN WATER 1,000 ML IV SCH ×3 (05:09→23:11)
[2021-12-08] MEDS: VANCOMYCIN 1,250 MG in SODIUM CHLORIDE 0.9% 250 ML IVPB SCH (08:50)
[2021-12-08] MEDS: HEPARIN SODIUM,PORCINE/PF 5,000 UNIT/0.5 ML SYRINGE SQ SCH ×3 (08:51→23:09)
[2021-12-08] MEDS: MULTIVITAMINS, THERA 1 EACH TAB PO SCH (08:51)
--- NOTE | 2021-12-08 10:32 | P.PN ---
Progress Note - Text Progress Note Date: 12/08/21 The patient remains nonverbal. His serum creatinine level is normal. He is unable to express whether or not he is experiencing any discomfort. It is my understanding that a swallowing study will be performed, which will help to determine whether Hospice care will be initiated. A CT scan of the abdomen and pelvis would be the study of choice to determine the cause of the hydronephrosis, and I would recommend this be done if the decision is made not to initiate Hospice care.
[2021-12-08 11:23] LABS: African American GFR (CKD) 93.8 (60.0-200.0); Anion Gap 9.7 mmol/L (10.00-18.00); BUN/Creat Ratio 21.17 Ratio (12.00-20.00); Blood Urea Nitrogen 19.5 mg/dL (9.0-27.0); Calcium 8.4 mg/dL (8.7-10.3); Carbon Dioxide 25.3 mmol/L (20.0-27.5); Potassium 3.6 mmol/L (3.5-5.5)
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
[2021-12-09 09:34] LABS: African American GFR (CKD) 87.5 (60.0-200.0); Non-African American GFR(CKD) 75.5 (60.0-200.0)
[2021-12-09] MEDS: HEPARIN SODIUM,PORCINE/PF 5,000 UNIT/0.5 ML SYRINGE SQ SCH ×2 (09:40→17:37)
[2021-12-09] MEDS: MULTIVITAMINS, THERA 1 EACH TAB PO SCH (09:40)
[2021-12-09] MEDS: VANCOMYCIN 1,250 MG in SODIUM CHLORIDE 0.9% 250 ML IVPB SCH (09:40)
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
[2021-12-09] MEDS: DEXTROSE 5% IN WATER 1,000 ML IV SCH ×2 (17:37→17:41)
[2021-12-09 20:58] LABS: African American GFR (CKD) 79 (>60 ml/min/1.73 sqM); Anion Gap 5 mmol/L; Blood Urea Nitrogen 18 mg/dL (9-20); Calcium 7.7 mg/dL (8.4-10.2); Carbon Dioxide 28 mmol/L (22-30); Chloride 108 mmol/L (98-107); Glucose 176 mg/dL (74-99); Non-African American GFR(CKD) 68 (>60 ml/min/1.73 sqM); Potassium 3.7 mmol/L (3.5-5.1); Sodium 141 mmol/L (137-145)
[2021-12-10] MEDS: DEXTROSE 5% IN WATER 1,000 ML IV SCH ×4 (00:51→21:39)
[2021-12-10] MEDS: HEPARIN SODIUM,PORCINE/PF 5,000 UNIT/0.5 ML SYRINGE SQ SCH ×4 (00:52→23:17)
--- NOTE | 2021-12-10 10:31 | CT ---
EXAMINATION TYPE: CT abdomen pelvis wo con DATE OF EXAM: 12/10/2021 COMPARISON: Ultrasound dated 12/04/2021 HISTORY: Hydronephrosis CT DLP: 1010.3 mGycm Automated exposure control for dose reduction was used. TECHNIQUE: Helical acquisition of images was performed from the lung bases through the pelvis. FINDINGS: Suboptimal CT scan with artifactual images. LUNG BASES: Bilateral pleural effusions. Infiltration is seen in the left lung base which could be re lated to acute infection/pneumonia however recurrent aspiration cannot be excluded, please correlate clinically. Small atelectasis in the right lung base. Arterial atherosclerotic calcifications. LIVER/GB: No significant abnormality is appreciated. The hepatic dome is not included in the scan. PANCREAS: No significant abnormality is seen. SPLEEN: No significant abnormality is seen. ADRENALS: No significant abnormality is seen. KIDNEYS: No definite radiodense urinary calculi. No obvious hydroureter or hydronephrosis. Questionab le left renal cyst, suboptimally assessed. FREE AIR: No free air is visualized RETROPERITONEAL ADENOPATHY: None visualized REPRODUCTIVE ORGANS: Enlarged prostate, please correlate with PSA level. URINARY BLADDER: Faulkner catheter is seen with the inflated balloon is likely within the prostatic ure thra, please correlate clinically. Air is seen within the urinary bladder. Thickening of the urinary bladder wall, please correlate with urinalysis results to rule out cystitis or infection. PELVIC ADENOPATHY: Prominent subcentimeter pelvic lymph nodes, nonspecific. OSSEOUS STRUCTURES: Severe osteopenia. No gross aggressive bone lesion. BOWEL: Grossly unremarkable stomach. No evidence of small bowel obstruction. Significant fecal loadi ng of the rectum with wall thickening, proctitis cannot be excluded. The remainder of the colon demon strates less fecal loading which may suggest constipation. OTHER: Arterial atherosclerotic calcification. IVC filter. Prominent vessels along the left side of a nterior abdominal wall as well as in the left retroperitoneum. IMPRESSION: No definite radiodense urinary calculi. No hydroureter or hydronephrosis. Severe fecal loading of the rectum without rectal wall thickening, proctitis cannot be excluded. Faulkner catheter is seen with the inflated balloon is likely within the prostatic urethra, please corre late clinically. Other findings as detailed above.
[2021-12-10] MEDS: MULTIVITAMINS, THERA 1 EACH TAB PO SCH (10:54)
[2021-12-10 11:05] LABS: Basophils # (A) 0.02 X 10*3/uL (0.00-0.10); Basophils % (A) 0.3 %; Eosinophils # (A) 0.28 X 10*3/uL (0.04-0.35); Eosinophils % (A) 3.7 %; HCT 31.8 % (39.6-50.0); HGB 9.3 g/dL (13.0-17.0); Immature Grans, Automated 2.5 %; Lymphocytes # (A) 2.38 X 10*3/uL (0.90-5.00); Lymphocytes % (A) 31.7 %; MCH 25.1 pg (27.0-32.0); MCHC 29.2 g/dL (32.0-37.0); MCV 85.9 fL (80.0-97.0); Mean Platelet Volume 11.7 fL (9.5-12.2); Monocytes # (A) 0.84 X 10*3/uL (0.20-1.00); Monocytes % (A) 11.2 %; NRBC Per 100 WBC 0 /100 WBCS (0.0-0.0); Neutrophils # (A) 3.79 X 10*3/uL (1.80-7.70); Neutrophils % (A) 50.6 %; Platelet Count 193 X 10*3/uL (140-440); RDW 14.9 % (11.5-14.5)
[2021-12-10 11:22] LABS: African American GFR (CKD) 96.5 (60.0-200.0); Anion Gap 8.4 mmol/L (10.00-18.00); BUN/Creat Ratio 16.67 Ratio (12.00-20.00); Calcium 8.1 mg/dL (8.7-10.3); Carbon Dioxide 25.6 mmol/L (20.0-27.5); Non-African American GFR(CKD) 83.3 (60.0-200.0); Potassium 3.7 mmol/L (3.5-5.5)
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
[2021-12-11] MEDS: DEXTROSE 5% IN WATER 1,000 ML IV SCH ×4 (04:39→20:35)
[2021-12-11 09:05] LABS: Basophils # (A) 0.02 X 10*3/uL (0.00-0.10); Basophils % (A) 0.3 %; Eosinophils # (A) 0.25 X 10*3/uL (0.04-0.35); Eosinophils % (A) 3.5 %; HCT 32.4 % (39.6-50.0); HGB 9.3 g/dL (13.0-17.0); Lymphocytes # (A) 2.36 X 10*3/uL (0.90-5.00); MCH 24.7 pg (27.0-32.0); MCHC 28.7 g/dL (32.0-37.0); MCV 85.9 fL (80.0-97.0); Mean Platelet Volume 11.7 fL (9.5-12.2); Monocytes # (A) 0.73 X 10*3/uL (0.20-1.00); Monocytes % (A) 10.2 %; NRBC Per 100 WBC 0 /100 WBCS (0.0-0.0); Neutrophils # (A) 3.66 X 10*3/uL (1.80-7.70); Platelet Count 202 X 10*3/uL (140-440); RBC 3.77 X 10*6/uL (4.40-5.60); WBC 7.16 X 10*3/uL (4.50-10.00)
[2021-12-11 09:19] LABS: African American GFR (CKD) 96.5 (60.0-200.0); Anion Gap 8.2 mmol/L (10.00-18.00); BUN/Creat Ratio 17.56 Ratio (12.00-20.00); Blood Urea Nitrogen 15.8 mg/dL (9.0-27.0); Calcium 8.1 mg/dL (8.7-10.3); Carbon Dioxide 26.8 mmol/L (20.0-27.5); Non-African American GFR(CKD) 83.3 (60.0-200.0); Potassium 4.1 mmol/L (3.5-5.5)
[2021-12-11] MEDS ORDERED: bisacodyL 10 MG SUPP RECTAL STA (09:19)
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
[2021-12-11] MEDS: HEPARIN SODIUM,PORCINE/PF 5,000 UNIT/0.5 ML SYRINGE SQ SCH ×2 (10:17→17:33)
[2021-12-11] MEDS: MULTIVITAMINS, THERA 1 EACH TAB PO SCH (10:17)
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
[2021-12-12] MEDS: HEPARIN SODIUM,PORCINE/PF 5,000 UNIT/0.5 ML SYRINGE SQ SCH ×4 (00:41→23:59)
[2021-12-12] MEDS: DEXTROSE 5% IN WATER 1,000 ML IV SCH ×3 (05:01→18:12)
[2021-12-12] MEDS: MULTIVITAMINS, THERA 1 EACH TAB PO SCH (09:05)
[2021-12-12 10:36] LABS: Basophils # (A) 0.03 X 10*3/uL (0.00-0.10); Basophils % (A) 0.4 %; Eosinophils # (A) 0.32 X 10*3/uL (0.04-0.35); Eosinophils % (A) 4.2 %; HCT 33.5 % (39.6-50.0); HGB 9.6 g/dL (13.0-17.0); Immature Grans, Automated 1.7 %; Lymphocytes # (A) 2.53 X 10*3/uL (0.90-5.00); Lymphocytes % (A) 33.3 %; MCH 24.7 pg (27.0-32.0); MCHC 28.7 g/dL (32.0-37.0); MCV 86.1 fL (80.0-97.0); Mean Platelet Volume 10.9 fL (9.5-12.2); Monocytes # (A) 0.79 X 10*3/uL (0.20-1.00); Monocytes % (A) 10.4 %; NRBC Per 100 WBC 0 /100 WBCS (0.0-0.0); Neutrophils # (A) 3.79 X 10*3/uL (1.80-7.70); Platelet Count 272 X 10*3/uL (140-440); RBC 3.89 X 10*6/uL (4.40-5.60); WBC 7.59 X 10*3/uL (4.50-10.00)
[2021-12-12 10:50] LABS: African American GFR (CKD) 101.3 (60.0-200.0); Anion Gap 10.9 mmol/L (10.00-18.00); BUN/Creat Ratio 13.88 Ratio (12.00-20.00); Blood Urea Nitrogen 11.1 mg/dL (9.0-27.0); Calcium 8.2 mg/dL (8.7-10.3); Carbon Dioxide 25.1 mmol/L (20.0-27.5); Non-African American GFR(CKD) 87.4 (60.0-200.0); Potassium 4.3 mmol/L (3.5-5.5)
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
[2021-12-12] MEDS: DOCUSATE 100 MG CAP PO SCH (20:48)
[2021-12-13] MEDS: DEXTROSE 5% IN WATER 1,000 ML IV SCH ×4 (01:51→23:58)
[2021-12-13 06:58] LABS: Glucose,Whole Blood 100 mg/dL (70-110)
[2021-12-13 08:48] LABS: African American GFR (CKD) 103.4 (60.0-200.0); Anion Gap 9.9 mmol/L (10.00-18.00); BUN/Creat Ratio 14.32 Ratio (12.00-20.00); Basophils # (A) 0.04 X 10*3/uL (0.00-0.10); Basophils % (A) 0.6 %; Blood Urea Nitrogen 10.9 mg/dL (9.0-27.0); Calcium 7.9 mg/dL (8.7-10.3); Carbon Dioxide 25.7 mmol/L (20.0-27.5); Eosinophils % (A) 4.5 %; HCT 33.2 % (39.6-50.0); HGB 9.5 g/dL (13.0-17.0); Immature Grans, Automated 1.8 %; Lymphocytes # (A) 2.23 X 10*3/uL (0.90-5.00); Lymphocytes % (A) 33.3 %; MCH 24.8 pg (27.0-32.0); MCHC 28.6 g/dL (32.0-37.0); MCV 86.7 fL (80.0-97.0); Mean Platelet Volume 10.9 fL (9.5-12.2); Monocytes # (A) 0.67 X 10*3/uL (0.20-1.00); NRBC Per 100 WBC 0 /100 WBCS (0.0-0.0); Neutrophils # (A) 3.34 X 10*3/uL (1.80-7.70); Neutrophils % (A) 49.8 %; Non-African American GFR(CKD) 89.2 (60.0-200.0); Platelet Count 279 X 10*3/uL (140-440); Potassium 3.8 mmol/L (3.5-5.5); RBC 3.83 X 10*6/uL (4.40-5.60)
[2021-12-13] MEDS: DOCUSATE 100 MG CAP PO SCH ×2 (09:41→22:06)
[2021-12-13] MEDS: HEPARIN SODIUM,PORCINE/PF 5,000 UNIT/0.5 ML SYRINGE SQ SCH ×3 (09:41→23:50)
[2021-12-13] MEDS: MULTIVITAMINS, THERA 1 EACH TAB PO SCH (09:41)
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
[2021-12-14] MEDS: DEXTROSE 5% IN WATER 1,000 ML IV SCH ×2 (05:46→12:18)
[2021-12-14] MEDS: DOCUSATE 100 MG CAP PO SCH ×2 (08:20→20:05)
[2021-12-14] MEDS: HEPARIN SODIUM,PORCINE/PF 5,000 UNIT/0.5 ML SYRINGE SQ SCH ×3 (08:20→23:33)
[2021-12-14] MEDS: MULTIVITAMINS, THERA 1 EACH TAB PO SCH (08:20)
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
[2021-12-14 12:53] LABS: African American GFR (CKD) >90 (>60 ml/min/1.73 sqM); Anion Gap 3 mmol/L; Blood Urea Nitrogen 16 mg/dL (9-20); Calcium 7.8 mg/dL (8.4-10.2); Carbon Dioxide 29 mmol/L (22-30); Chloride 106 mmol/L (98-107); Glucose 108 mg/dL (74-99); Non-African American GFR(CKD) 81 (>60 ml/min/1.73 sqM); Potassium 4.1 mmol/L (3.5-5.1); Sodium 138 mmol/L (137-145)
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
[2021-12-15 06:38] LABS: African American GFR (CKD) >90 (>60 ml/min/1.73 sqM); Anion Gap 7 mmol/L; Blood Urea Nitrogen 17 mg/dL (9-20); Calcium 8.1 mg/dL (8.4-10.2); Carbon Dioxide 26 mmol/L (22-30); Chloride 106 mmol/L (98-107); Glucose 89 mg/dL (74-99); Non-African American GFR(CKD) 84 (>60 ml/min/1.73 sqM); Potassium 4.2 mmol/L (3.5-5.1); Sodium 139 mmol/L (137-145)
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
[2021-12-15] MEDS: DOCUSATE 100 MG CAP PO SCH ×2 (09:48→19:58)
[2021-12-15] MEDS: HEPARIN SODIUM,PORCINE/PF 5,000 UNIT/0.5 ML SYRINGE SQ SCH ×2 (09:48→15:49)
[2021-12-15] MEDS: MULTIVITAMINS, THERA 1 EACH TAB PO SCH (09:49)
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
[2021-12-16] MEDS: HEPARIN SODIUM,PORCINE/PF 5,000 UNIT/0.5 ML SYRINGE SQ SCH ×3 (00:38→16:24)
[2021-12-16] MEDS: DOCUSATE 100 MG CAP PO SCH ×2 (08:45→19:49)
[2021-12-16] MEDS: MULTIVITAMINS, THERA 1 EACH TAB PO SCH (08:45)
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
[2021-12-16 14:32] LABS: African American GFR (CKD) >90 (>60 ml/min/1.73 sqM); Anion Gap 8 mmol/L; Basophils # (A) 0.1 k/uL (0-0.2); Basophils % (A) 1 %; Blood Urea Nitrogen 24 mg/dL (9-20); Calcium 8.5 mg/dL (8.4-10.2); Carbon Dioxide 26 mmol/L (22-30); Chloride 109 mmol/L (98-107); Eosinophils % (A) 0 %; Glucose 121 mg/dL (74-99); HGB 11.6 gm/dL (13.0-17.5); Hypochromasia Marked; Lymphocytes # (A) 1.2 k/uL (1.0-4.8); Lymphocytes % (A) 13 %; MCH 26.2 pg (25.0-35.0); MCHC 30.6 g/dL (31.0-37.0); MCV 85.7 fL (80.0-100.0); Mean Platelet Volume 7.6; Monocytes # (A) 0.6 k/uL (0-1.0); Monocytes % (A) 7 %; Neutrophils # (A) 7.1 k/uL (1.3-7.7); Neutrophils % (A) 77 %; Non-African American GFR(CKD) 80 (>60 ml/min/1.73 sqM); Platelet Count 453 k/uL (150-450); RBC 4.44 m/uL (4.30-5.90); RDW 15.1 % (11.5-15.5); Sodium 143 mmol/L (137-145); WBC 9.2 k/uL (3.8-10.6)
[2021-12-17] MEDS: DOCUSATE 100 MG CAP PO SCH (09:05)
[2021-12-17] MEDS: MULTIVITAMINS, THERA 1 EACH TAB PO SCH (09:05)
[2021-12-17] MEDS: HEPARIN SODIUM,PORCINE/PF 5,000 UNIT/0.5 ML SYRINGE SQ SCH ×2 (09:05)
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
[2021-12-17 11:20] LABS: African American GFR (CKD) 96.5 (60.0-200.0); Anion Gap 9.9 mmol/L (10.00-18.00); BUN/Creat Ratio 23.33 Ratio (12.00-20.00); Calcium 8.5 mg/dL (8.7-10.3); Carbon Dioxide 26.1 mmol/L (20.0-27.5); Non-African American GFR(CKD) 83.3 (60.0-200.0); Potassium 4.1 mmol/L (3.5-5.5)
[2021-12-17 12:16] VITALS: BP 189/50; PULSE 106; RESP 17; TEMP 98.9
[2021-12-17] MEDS ORDERED: DEXTROSE 5% IN WATER 1,000 ML IV SCH (15:00)
== END 2021-12-17 17:21 | DRG 193 ==
LOC: EC 23:20 → 5NMEDONC 12-04 03:03
PROVIDERS: ADMIT Internal Medicine; ATTEND Internal Medicine
DX: J18.9 Pneumonia, unspecified organism (principal); J96.01 Acute respiratory failure with hypoxia; L89.523 Pressure ulcer of left ankle, stage 3; N17.9 Acute kidney failure, unspecified; J44.0 Chronic obstructive pulmonary disease with (acute) lower respiratory infection; N13.30 Unspecified hydronephrosis; E87.2 Acidosis; L03.116 Cellulitis of left lower limb; L97.429 Non-pressure chronic ulcer of left heel and midfoot with unspecified severity; L97.822 Non-pressure chronic ulcer of other part of left lower leg with fat layer exposed; E87.0 Hyperosmolality and hypernatremia; E87.1 Hypo-osmolality and hyponatremia; E86.0 Dehydration; E87.6 Hypokalemia; E86.1 Hypovolemia; F32.A Depression, unspecified; R13.10 Dysphagia, unspecified; Z87.820 Personal history of traumatic brain injury; R32 Unspecified urinary incontinence; F41.9 Anxiety disorder, unspecified; I50.9 Heart failure, unspecified; K59.00 Constipation, unspecified; I45.10 Unspecified right bundle-branch block; Z20.822 Contact with and (suspected) exposure to COVID-19; G47.00 Insomnia, unspecified; L89.322 Pressure ulcer of left buttock, stage 2; L89.312 Pressure ulcer of right buttock, stage 2; L89.222 Pressure ulcer of left hip, stage 2; Z99.3 Dependence on wheelchair; Z66 Do not resuscitate; Z79.01 Long term (current) use of anticoagulants; Z79.899 Other long term (current) drug therapy
CPT/HCPCS: 36415; 71045; 74176; 76770; 80048; 80053; 80202; 81001; 82565; 83605; 83735; 83880; 84100; 84484; 85025; 85027; 85610; 85730; 87635; 93005; 94760; 96361; 96365; 99285